=== PATIENT | female | born 1995 | race Hispanic/Latino ===

== ENCOUNTER 2017-10-29 15:11 | Observation (INO) | payer MEDICAID ==
[~2017-10-29] VITALS: Ht 152.4 cm; Wt 77.1 kg
[~2017-10-29 15:11] MED LIST: PNV91TAB3 PO; SULF1TAB42 PO; TYL3 PO
[2017-10-29] MEDS ORDERED: LACTATED RINGERS 1000ML 1,000 ML IV SCH (15:45)
[2017-10-29 16:00] LABS: BASOPHILS % (AUTO) 0.4 % (0.0-5.0); EOSINOPHILS % (AUTO) 1.3 % (0.0-8.0); LYMPHOCYTES % (AUTO) 17.4 % (21.0-51.0); MEAN CORPUSCULAR HEMOGLOBIN 29.2 pg (27.0-33.0); MEAN CORPUSCULAR HGB CONC 35.2 g/dL (32.0-36.0); MEAN CORPUSCULAR VOLUME 82.8 fL (79-99); MONOCYTES % (AUTO) 7.6 % (3.0-13.0); NEUTROPHILS % (AUTO) 73.3 % (40.0-77.0); NUCLEATED RED BLOOD CELLS 0.1 % (0.0-0.19); PLATELET COUNT (AUTO) 225 K/uL (130-400); RED BLOOD CELL COUNT(AUTO) 3.99 MIL/uL (4.00-5.50); RED CELL DISTRIBUTION WIDTH 15.7 % (11.0-15.5); WHITE BLOOD COUNT (AUTO) 10.8 K/uL (4.8-10.8)
[2017-10-29 16:01] LABS: APPEARANCE,URINE Clear (CLEAR); BILIRUBIN,URINE Negative (NEGATIVE); COLOR,URINE Yellow (YELLOW); GLUCOSE, URINE (UA) Negative (NEGATIVE); KETONES,URINE Negative (NEGATIVE); LEUKOCYTE ESTERASE ,URINE Moderate (NEGATIVE); NITRATE,URINE Negative (NEGATIVE); OCCULT BLOOD,URINE Negative (NEGATIVE); PH,URINE 6.5 (5.0-8.0); PROTEIN,URINE Negative (NEGATIVE)
[2017-10-29 16:21] LABS: BACTERIA,URINE Few /HPF (None Seen); RBC,URINE 0-1 /HPF (0-1); SQUAMOUS EPITHELIAL CELL,UR Few /HPF (0-2); TRICHOMONAS,URINE Few /LPF (None Seen)
[2017-10-29] MEDS ORDERED: METRONIDAZOLE 500 MG TABLET PO SCH (17:15)
[2017-10-29] MEDS ORDERED: CEFTRIAXONE SODIUM 1 GM IVP SCH (17:15)
[2017-10-29] MEDS ORDERED: CEFTRIAXONE 1GM/D5W 50ML 50 ML IV ONE (17:15)
== END 2017-10-29 18:58 | disposition home or self-care (01) ==
LOC: LDH 15:11
PROVIDERS: ADMIT Obstetrics & Gynecology; ATTEND Obstetrics & Gynecology
DX: O21.1 Hyperemesis gravidarum with metabolic disturbance (principal); E86.0 Dehydration; Z3A.30 30 weeks gestation of pregnancy
CPT/HCPCS: 36415; 81001; 85025; 96361; 96374; G0378 ×5; J0696; J7120; 96360

== ENCOUNTER 2017-10-30 15:05 | Observation (INO) | payer MEDICAID ==
[2017-10-30 15:36] LABS: APPEARANCE,URINE Cloudy (CLEAR); BILIRUBIN,URINE Negative (NEGATIVE); COLOR,URINE Yellow (YELLOW); GLUCOSE, URINE (UA) Negative (NEGATIVE); KETONES,URINE Negative (NEGATIVE); LEUKOCYTE ESTERASE ,URINE Moderate (NEGATIVE); NITRATE,URINE Negative (NEGATIVE); OCCULT BLOOD,URINE Negative (NEGATIVE); PROTEIN,URINE Negative (NEGATIVE)
[2017-10-30 16:29] LABS: BACTERIA,URINE Many /HPF (None Seen); RBC,URINE None Seen /HPF (0-1); SQUAMOUS EPITHELIAL CELL,UR 30-50 /HPF (0-2)
== END 2017-10-30 16:17 | disposition home or self-care (01) ==
LOC: EDH 15:05 → LDH 15:26
PROVIDERS: ADMIT Obstetrics & Gynecology; ATTEND Obstetrics & Gynecology
DX: O99.89 Other specified diseases and conditions complicating pregnancy, childbirth and the puerperium (principal); M54.5 Low back pain; O21.2 Late vomiting of pregnancy; O26.893 Other specified pregnancy related conditions, third trimester; R06.02 Shortness of breath; Z3A.30 30 weeks gestation of pregnancy
CPT/HCPCS: 99285; G0378

== ENCOUNTER 2017-11-17 18:59 | Observation (INO) | payer MEDICAID ==
[~2017-11-17] VITALS: Ht 152.4 cm; Wt 78.9 kg
[2017-11-17 19:39] VITALS: BP 124/69
[2017-11-17 19:44] LABS: APPEARANCE,URINE Cloudy (CLEAR); BILIRUBIN,URINE Negative (NEGATIVE); COLOR,URINE Yellow (YELLOW); GLUCOSE, URINE (UA) Negative (NEGATIVE); KETONES,URINE Negative (NEGATIVE); LEUKOCYTE ESTERASE ,URINE Moderate (NEGATIVE); NITRATE,URINE Negative (NEGATIVE); OCCULT BLOOD,URINE Negative (NEGATIVE); PH,URINE 6.5 (5.0-8.0); PROTEIN,URINE Negative (NEGATIVE)
[2017-11-17 19:52] LABS: AMPHET/METH SCREEN,URINE NEGATIVE (NEGATIVE); BARBITURATE SCREEN, URINE NEGATIVE (NEGATIVE); BENZODIAZEPINES SCREEN,URINE NEGATIVE (NEGATIVE); CANNABINOID SCREEN,URINE NEGATIVE (NEGATIVE); COCAINE SCREEN,URINE NEGATIVE (NEGATIVE); OPIATE SCREEN,URINE NEGATIVE (NEGATIVE); PHENCYCLIDINE SCREEN,URINE NEGATIVE (NEGATIVE)
[2017-11-17 20:18] LABS: BACTERIA,URINE Moderate /HPF (None Seen); RBC,URINE 0-1 /HPF (0-1); SQUAMOUS EPITHELIAL CELL,UR Moderate /HPF (0-2)
== END 2017-11-17 20:25 | disposition home or self-care (01) ==
LOC: EDH 18:59 → LDH 19:00
PROVIDERS: ADMIT Obstetrics & Gynecology; ATTEND Obstetrics & Gynecology
DX: O42.913 Preterm premature rupture of membranes, unspecified as to length of time between rupture and onset of labor, third trimester (principal); Z3A.32 32 weeks gestation of pregnancy
CPT/HCPCS: 80305; 81001; 82120; 99285; G0378

== ENCOUNTER 2017-12-31 10:30 | Inpatient (IN) | payer MEDICAID ==
[~2017-12-31] VITALS: Ht 152.4 cm; Wt 83.0 kg
[2017-12-31 11:16] LABS: HEMATOCRIT 39.4 % (36-48); MEAN CORPUSCULAR HEMOGLOBIN 28.2 pg (27.0-33.0); MEAN CORPUSCULAR HGB CONC 33.9 g/dL (32.0-36.0); MEAN CORPUSCULAR VOLUME 83.1 fL (79-99); PLATELET COUNT (AUTO) 193 K/uL (130-400); RED BLOOD CELL COUNT(AUTO) 4.74 MIL/uL (4.00-5.50); RED CELL DISTRIBUTION WIDTH 19.3 % (11.0-15.5); WHITE BLOOD COUNT (AUTO) 10.3 K/uL (4.8-10.8)
[2018-01-01] MEDS ORDERED: OXYTOCIN-LR 20 UNITS/1000 ML 1,000 ML IV PRN ×2 (05:07→09:38)
[2018-01-01] MEDS ORDERED: CEFAZOLIN SODIUM 1 GM VIAL IVP PRN (05:15)
[2018-01-01] MEDS ORDERED: SODIUM CHLORIDE 0.9% 10 ML VIAL IVP PRN ×2 (05:15→09:45)
[2018-01-01] MEDS ORDERED: MEPERIDINE-PF 75 MG/ML SYG IM PRN (05:15)
[2018-01-01] MEDS ORDERED: CITRIC ACID/SODIUM CITRATE 30 ML UDCUP PO PRN (05:15)
[2018-01-01] MEDS ORDERED: LACTATED RINGERS 1000ML 1,000 ML IV SCH (05:15)
[2018-01-01] MEDS ORDERED: PROMETHAZINE HCL 25 MG/ML 1ML AMPULE IM PRN ×2 (05:15→10:00)
[2018-01-01] MEDS ORDERED: PREN-196 PO (05:45)
[2018-01-01] MEDS ORDERED: FERR-82 PO (05:45)
[2018-01-01 05:46] VITALS: BP 121/65
[2018-01-01] MEDS ORDERED: METHYLERGONOVINE MALEATE 0.2 MG/1 ML ML ONE (06:03)
[2018-01-01] MEDS ORDERED: SENSORCAINE/DEXT/PF 0.75% 2ML AMP IJ ONE (06:34)
[2018-01-01] MEDS ORDERED: MIDAZOLAM HCL 1 MG/ML 2ML VIAL ONE (06:56)
[2018-01-01] MEDS ORDERED: ONDANSETRON HCL 4 MG/2 ML VIAL ONE (06:57)
[2018-01-01] MEDS ORDERED: DEXAMETHASONE SOD PHOSPHATE 10MG/ML 1ML VIAL ONE (06:57)
[2018-01-01] MEDS ORDERED: OXYTOCIN 10 USP UNITS/ML ONE (07:24)
[2018-01-01] MEDS ORDERED: LACTATED RINGERS 1000ML 1,000 ML IV ONE (07:24)
[2018-01-01 07:36] LABS: HEPATITIS Bs ANTIGEN SCREEN P Negative (Negative)
[2018-01-01] MEDS ORDERED: MEPERIDINE-PF 25 MG/ML SYG ONE (08:49)
[2018-01-01] MEDS ORDERED: DEXTROSE 5 %-0.45 % NACL 1,000 ML IV PRN (09:45)
[2018-01-01] MEDS ORDERED: DiphenhydrAMINE HCL 50 MG/ML VIAL IVP PRN (10:00)
[2018-01-01] MEDS ORDERED: ONDANSETRON HCL 4 MG/2 ML VIAL IVP PRN ×2 (10:00)
[2018-01-01] MEDS ORDERED: HYDROCODONE/ACETAMINOPHEN 5/325 MG TAB PO PRN (10:00)
[2018-01-01] MEDS ORDERED: EPHEDRINE SULFATE 50 MG/ML AMPULE IVP PRN (10:00)
[2018-01-01] MEDS ORDERED: ONDANSETRON HCL 4 MG/2 ML 8 MG in SODIUM CHLORIDE 0.9% 50 ML IVP NR (10:00)
[2018-01-01] MEDS ORDERED: MORPHINE SULFATE 2 MG/ML 1ML SYG IVP PRN (10:00)
[2018-01-01] MEDS ORDERED: METOCLOPRAMIDE 10 MG/2 ML VIAL IVP PRN (10:00)
[2018-01-01] MEDS ORDERED: NALOXONE HCL 0.4 MG/1 ML ML IVP PRN (10:00)
[2018-01-01] MEDS: CALDOLOR 800MG+NS 250ML 250 ML IV SCH ×2 (11:42→19:04)
[2018-01-01 12:00] VITALS: BP 131/79
[2018-01-01 15:21] VITALS: BP 136/78
[2018-01-01] MEDS: HYDROCODONE/ACETAMINOPHEN 5/325 MG TAB PO PRN (17:46)
[2018-01-01] MEDS: DEXTROSE 5 %-0.45 % NACL 1,000 ML IV PRN ×2 (17:46→18:17)
[2018-01-01 19:39] VITALS: BP 126/71
[2018-01-02] VITALS (7 sets, daily range): BP systolic 94–132; BP diastolic 58–77
[2018-01-02] MEDS: DEXTROSE 5 %-0.45 % NACL 1,000 ML IV PRN (02:00)
[2018-01-02] MEDS: HYDROCODONE/ACETAMINOPHEN 5/325 MG TAB PO PRN (03:09)
[2018-01-02] MEDS ORDERED: LANOLIN 30GM OINTMENT TP PRN (05:00)
[2018-01-02] MEDS ORDERED: HYDROCODONE/ACETAMINOPHEN 5/325 MG TAB PO PRN (05:00)
[2018-01-02] MEDS ORDERED: DIPH,PERTUSS(ACELL),TET VAC/PF 0.5 ML VIAL IM SCH (05:00)
[2018-01-02] MEDS ORDERED: ACETAMINOPHEN EXTRA STRENGTH 500 MG TABLET PO PRN (05:00)
[2018-01-02 05:29] LABS: HEMATOCRIT 31.7 % (36-48); MEAN CORPUSCULAR HEMOGLOBIN 27.9 pg (27.0-33.0); MEAN CORPUSCULAR HGB CONC 33.6 g/dL (32.0-36.0); PLATELET COUNT (AUTO) 172 K/uL (130-400); RED BLOOD CELL COUNT(AUTO) 3.82 MIL/uL (4.00-5.50); RED CELL DISTRIBUTION WIDTH 19.6 % (11.0-15.5); WHITE BLOOD COUNT (AUTO) 11.6 K/uL (4.8-10.8)
[2018-01-02] MEDS ORDERED: ONDANSETRON HCL MDV 20ML 2 MG/ML VIAL IVP PRN (05:30)
[2018-01-02] MEDS ORDERED: ONDANSETRON HCL 4 MG/2 ML VIAL IVP PRN (05:30)
[2018-01-02] MEDS: DOCUSATE SODIUM 100 MG CAP PO SCH ×2 (08:54→21:16)
[2018-01-02] MEDS: SIMETHICONE 80 MG TAB.CHEW PO PRN ×2 (08:54→21:16)
[2018-01-02] MEDS: ACETAMINOPHEN-CODEINE 300/30MG TAB PO PRN ×2 (08:55→18:34)
[2018-01-02] MEDS: BISACODYL 10 MG SUPP.RECT RC PRN ×2 (15:30→21:17)
[2018-01-02] MEDS: IBUPROFEN 600 MG TABLET PO PRN ×2 (15:30→21:17)
[2018-01-03] MEDS: IBUPROFEN 600 MG TABLET PO PRN ×2 (04:20→13:51)
[2018-01-03 07:43] VITALS: BP 135/79
[2018-01-03] MEDS: DOCUSATE SODIUM 100 MG CAP PO SCH (08:37)
[2018-01-03] MEDS: SIMETHICONE 80 MG TAB.CHEW PO PRN (08:37)
[2018-01-03] MEDS: ACETAMINOPHEN-CODEINE 300/30MG TAB PO PRN (09:13)
[2018-01-03] MEDS ORDERED: LACTATED RINGERS 1000ML IV ONE (09:30)
[2018-01-03 11:39] VITALS: BP 128/81
[2018-01-03 15:39] VITALS: BP 118/69
== END 2018-01-03 19:10 | disposition home or self-care (01) | DRG 540 ==
LOC: EDSTATUS 10:30 → LDH 01-01 04:40 → WSH 01-01 09:00
PROVIDERS: ADMIT Obstetrics & Gynecology; ATTEND Obstetrics & Gynecology
PROC: 10D00Z1 Extraction of Products of Conception, Low, Open Approach (ICD-10-PCS; principal; 2018-01-01 07:00)
PROC: 3E0234Z Introduction of Serum, Toxoid and Vaccine into Muscle, Percutaneous Approach (ICD-10-PCS; 2018-01-02)
DX: O34.211 Maternal care for low transverse scar from previous cesarean delivery (principal); J45.909 Unspecified asthma, uncomplicated; O99.52 Diseases of the respiratory system complicating childbirth; Z37.0 Single live birth; Z23 Encounter for immunization; Z3A.39 39 weeks gestation of pregnancy
CPT/HCPCS: 36415; 59510; 85027; 86592; 86850; 86900; 86901; 87340; 90715; A4344; A4450; A4606; J0690; J1100; J1741; J2175; J2210; J2250; J2405; J2550; J2590; J3490; J7120

== ENCOUNTER 2018-01-04 15:56 | Emergency (ER) | payer MEDICAID ==
[~2018-01-04 15:56] MED LIST changes: +FERR-82 PO; +PREN-196 PO
[2018-01-04] MEDS ORDERED: ACETAMINOPHEN EXTRA STRENGTH 500 MG TABLET ONE (16:40)
[2018-01-04] MEDS ORDERED: ORPHENADRINE CITRATE 30 MG/ML ML ONE (16:40)
[2018-01-04 17:05] LABS: BASOPHILS % (AUTO) 0.3 % (0.0-5.0); EOSINOPHILS % (AUTO) 3.3 % (0.0-8.0); HEMATOCRIT 33.4 % (36-48); LYMPHOCYTES % (AUTO) 24.7 % (21.0-51.0); MEAN CORPUSCULAR HEMOGLOBIN 28.1 pg (27.0-33.0); MEAN CORPUSCULAR HGB CONC 33.6 g/dL (32.0-36.0); MEAN CORPUSCULAR VOLUME 83.8 fL (79-99); MONOCYTES % (AUTO) 7.4 % (3.0-13.0); NEUTROPHILS % (AUTO) 64.3 % (40.0-77.0); PLATELET COUNT (AUTO) 194 K/uL (130-400); RED BLOOD CELL COUNT(AUTO) 3.99 MIL/uL (4.00-5.50); RED CELL DISTRIBUTION WIDTH 19.4 % (11.0-15.5); WHITE BLOOD COUNT (AUTO) 7.6 K/uL (4.8-10.8)
[2018-01-04 17:13] LABS: CREATININE 0.6 mg/dL (0.5-1.5)
[2018-01-04 17:17] LABS: ALBUMIN 2.5 g/dL (3.5-5.0); BILIRUBIN,TOTAL 0.2 mg/dL (0.2-1.0); TOTAL PROTEIN, SERUM 6.4 g/dL (6.0-8.3)
== END 2018-01-04 18:31 | disposition home or self-care (01) ==
LOC: EDH 15:56
DX: G44.209 Tension-type headache, unspecified, not intractable (principal); M54.2 Cervicalgia; J45.909 Unspecified asthma, uncomplicated; Z90.49 Acquired absence of other specified parts of digestive tract; Z98.890 Other specified postprocedural states
CPT/HCPCS: 36415; 80053; 85025; 96372; 99284; J2360

== ENCOUNTER 2018-12-29 15:47 | Emergency (ER) | payer MEDICAID, OTHER ==
[2018-12-29] MEDS ORDERED: ONDANSETRON ODT 4 MG TAB ONE (16:25)
[2018-12-29] MEDS ORDERED: SIMETHICONE 80 MG TAB.CHEW ONE (16:25)
[2018-12-29] MEDS ORDERED: ACETAMINOPHEN 325 MG TAB ONE (16:25)
== END 2018-12-29 18:02 | disposition home or self-care (01) ==
LOC: EDH 15:47
DX: R11.2 Nausea with vomiting, unspecified (principal); R19.7 Diarrhea, unspecified; J45.909 Unspecified asthma, uncomplicated

== ENCOUNTER 2019-03-14 21:11 | Emergency (ER) | payer OTHER | END 2019-03-14 21:51 | disposition home or self-care (01) | LOC: EDH 21:11 | DX: S09.8XXA Other specified injuries of head, initial encounter (principal); J45.909 Unspecified asthma, uncomplicated; Z90.49 Acquired absence of other specified parts of digestive tract; V49.19XA Passenger injured in collision with other motor vehicles in nontraffic accident, initial encounter; Y93.89 Activity, other specified; Y92.89 Other specified places as the place of occurrence of the external cause; Y99.8 Other external cause status ==

== ENCOUNTER 2019-04-27 15:13 | Emergency (ER) | payer OTHER ==
[2019-04-27 15:55] LABS: BASOPHILS % (AUTO) 0.6 % (0.0-5.0); EOSINOPHILS % (AUTO) 1.3 % (0.0-8.0); HEMATOCRIT 43.1 % (36-48); LYMPHOCYTES % (AUTO) 25.7 % (21.0-51.0); MEAN CORPUSCULAR HEMOGLOBIN 29.9 pg (27.0-33.0); MEAN CORPUSCULAR HGB CONC 34.4 g/dL (32.0-36.0); MEAN CORPUSCULAR VOLUME 86.8 fL (79-99); MONOCYTES % (AUTO) 8.2 % (3.0-13.0); NEUTROPHILS % (AUTO) 64.2 % (40.0-77.0); PLATELET COUNT (AUTO) 250 K/uL (130-400); RED BLOOD CELL COUNT(AUTO) 4.96 MIL/uL (4.00-5.50); RED CELL DISTRIBUTION WIDTH 12.9 % (11.0-15.5); WHITE BLOOD COUNT (AUTO) 8.6 K/uL (4.8-10.8)
[2019-04-27 16:11] LABS: CREATININE 0.5 mg/dL (0.5-1.5); POTASSIUM 4.1 mmol/L (3.5-5.1)
[2019-04-27 16:16] LABS: ALBUMIN 4.3 g/dL (3.5-5.0); BILIRUBIN,TOTAL 0.4 mg/dL (0.2-1.0); TOTAL PROTEIN, SERUM 8.3 g/dL (6.0-8.3)
[2019-04-27 16:26] LABS: APPEARANCE,URINE Cloudy (CLEAR); BILIRUBIN,URINE Negative (NEGATIVE); COLOR,URINE Yellow (YELLOW); GLUCOSE, URINE (UA) Negative (NEGATIVE); KETONES,URINE Negative (NEGATIVE); LEUKOCYTE ESTERASE ,URINE Moderate (NEGATIVE); NITRATE,URINE Negative (NEGATIVE); OCCULT BLOOD,URINE Negative (NEGATIVE); PROTEIN,URINE Negative (NEGATIVE)
[2019-04-27 16:43] LABS: HCG,QUAL RESULT NEGATIVE (NEGATIVE)
[2019-04-27 16:51] LABS: BACTERIA,URINE Few /HPF (None Seen); RBC,URINE None Seen /HPF (0-1)
== END 2019-04-27 16:52 | disposition home or self-care (01) ==
LOC: EDH 15:13
DX: R53.1 Weakness (principal); F41.1 Generalized anxiety disorder; G44.219 Episodic tension-type headache, not intractable; G47.00 Insomnia, unspecified; J45.909 Unspecified asthma, uncomplicated
CPT/HCPCS: 36415; 80053; 81001; 81025; 85025; 93005

== ENCOUNTER 2019-10-08 18:22 | Emergency (ER) | payer SELFPAY | END 2019-10-08 18:45 | disposition home or self-care (01) | LOC: EDH 18:22 | DX: J11.1 Influenza due to unidentified influenza virus with other respiratory manifestations (principal); J45.909 Unspecified asthma, uncomplicated ==

== ENCOUNTER 2019-12-11 17:19 | Emergency (ER) | payer OTHER ==
[2019-12-11 18:21] LABS: BASOPHILS % (AUTO) 0.6 % (0.0-5.0); EOSINOPHILS % (AUTO) 2.6 % (0.0-8.0); HEMATOCRIT 39.8 % (36-48); LYMPHOCYTES % (AUTO) 26.7 % (21.0-51.0); MEAN CORPUSCULAR HGB CONC 33.7 g/dL (32.0-36.0); MEAN CORPUSCULAR VOLUME 86.1 fL (79-99); MONOCYTES % (AUTO) 7.2 % (3.0-13.0); PLATELET COUNT (AUTO) 287 K/uL (130-400); RED BLOOD CELL COUNT(AUTO) 4.62 MIL/uL (4.00-5.50); RED CELL DISTRIBUTION WIDTH 11.9 % (11.0-15.5); WHITE BLOOD COUNT (AUTO) 8.9 K/uL (4.8-10.8)
[2019-12-11 18:30] LABS: CREATININE 0.5 mg/dL (0.5-1.5); POTASSIUM 4.1 mmol/L (3.5-5.1)
[2019-12-11 18:35] LABS: ALBUMIN 4.1 g/dL (3.5-5.0); BILIRUBIN,TOTAL 0.2 mg/dL (0.2-1.0); TOTAL PROTEIN, SERUM 8.2 g/dL (6.0-8.3)
[2019-12-11 18:39] LABS: RAPID GROUP A STREP NEGATIVE (NEGATIVE)
== END 2019-12-11 20:27 | disposition home or self-care (01) ==
LOC: EDH 17:19
DX: J02.9 Acute pharyngitis, unspecified (principal); R04.2 Hemoptysis; J45.909 Unspecified asthma, uncomplicated; Z90.49 Acquired absence of other specified parts of digestive tract; Z98.890 Other specified postprocedural states
CPT/HCPCS: 36415; 71045; 80053; 85025; 87804; 87880

== ENCOUNTER 2020-06-24 15:28 | Emergency (ER) | payer MEDICAID ==
[2020-06-24 16:04] LABS: APPEARANCE,URINE Clear (CLEAR); BILIRUBIN,URINE Negative (NEGATIVE); COLOR,URINE Yellow (YELLOW); GLUCOSE, URINE (UA) Negative (NEGATIVE); KETONES,URINE 40 mg/dL (NEGATIVE); LEUKOCYTE ESTERASE ,URINE Small (NEGATIVE); NITRATE,URINE Negative (NEGATIVE); OCCULT BLOOD,URINE Negative (NEGATIVE); PH,URINE 6.5 (5.0-8.0); PROTEIN,URINE Negative (NEGATIVE)
[2020-06-24 16:11] LABS: AMPHET/METH SCREEN,URINE NEGATIVE (NEGATIVE); BARBITURATE SCREEN, URINE NEGATIVE (NEGATIVE); BENZODIAZEPINES SCREEN,URINE NEGATIVE (NEGATIVE); CANNABINOID SCREEN,URINE NEGATIVE (NEGATIVE); COCAINE SCREEN,URINE NEGATIVE (NEGATIVE); OPIATE SCREEN,URINE NEGATIVE (NEGATIVE); PHENCYCLIDINE SCREEN,URINE NEGATIVE (NEGATIVE)
[2020-06-24 16:13] LABS: BASOPHILS % (AUTO) 0.4 % (0.0-5.0); EOSINOPHILS % (AUTO) 1.2 % (0.0-8.0); LYMPHOCYTES % (AUTO) 18.3 % (21.0-51.0); MEAN CORPUSCULAR HEMOGLOBIN 30.1 pg (27.0-33.0); MEAN CORPUSCULAR HGB CONC 35.4 g/dL (32.0-36.0); MEAN CORPUSCULAR VOLUME 85.2 fL (79-99); MONOCYTES % (AUTO) 4.6 % (3.0-13.0); NEUTROPHILS % (AUTO) 74.5 % (40.0-77.0); PLATELET COUNT (AUTO) 248 K/uL (130-400); RED BLOOD CELL COUNT(AUTO) 4.58 MIL/uL (4.00-5.50); RED CELL DISTRIBUTION WIDTH 12.1 % (11.0-15.5); WHITE BLOOD COUNT (AUTO) 11.3 K/uL (4.8-10.8)
[2020-06-24 16:19] LABS: CREATININE 0.5 mg/dL (0.5-1.5); POTASSIUM 3.3 mmol/L (3.5-5.1)
[2020-06-24 16:25] LABS: BACTERIA,URINE Few /HPF (None Seen); RBC,URINE None Seen /HPF (0-1); WBC,URINE 0-1 /HPF (0-1)
[2020-06-24 16:45] LABS: ALBUMIN 3.5 g/dL (3.5-5.0); BILIRUBIN,TOTAL 0.4 mg/dL (0.2-1.0); TOTAL PROTEIN, SERUM 8.2 g/dL (6.0-8.3)
== END 2020-06-24 20:17 | disposition left against medical advice (07) ==
LOC: EDH 15:28
DX: O9A.211 Injury, poisoning and certain other consequences of external causes complicating pregnancy, first trimester (principal); O99.511 Diseases of the respiratory system complicating pregnancy, first trimester; O26.891 Other specified pregnancy related conditions, first trimester; S80.12XA Contusion of left lower leg, initial encounter; R55 Syncope and collapse; Z20.828 Contact with and (suspected) exposure to other viral communicable diseases; J45.909 Unspecified asthma, uncomplicated; Z90.49 Acquired absence of other specified parts of digestive tract; Z98.890 Other specified postprocedural states; Z88.6 Allergy status to analgesic agent; Z3A.13 13 weeks gestation of pregnancy; W18.39XA Other fall on same level, initial encounter; Y93.89 Activity, other specified; Y92.89 Other specified places as the place of occurrence of the external cause; Y99.8 Other external cause status
CPT/HCPCS: 36415; 76801; 80053; 80305; 81001; 84702; 85025; 87426; 93005; 99285; U0003

== ENCOUNTER 2020-07-19 15:32 | Emergency (ER) | payer MEDICAID ==
[2020-07-19 17:32] LABS: BASOPHILS % (AUTO) 0.5 % (0.0-5.0); EOSINOPHILS % (AUTO) 1.4 % (0.0-8.0); HEMATOCRIT 35.4 % (36-48); LYMPHOCYTES % (AUTO) 23.5 % (21.0-51.0); MEAN CORPUSCULAR HGB CONC 34.2 g/dL (32.0-36.0); MEAN CORPUSCULAR VOLUME 87.6 fL (79-99); MONOCYTES % (AUTO) 6.8 % (3.0-13.0); NEUTROPHILS % (AUTO) 66.2 % (40.0-77.0); PLATELET COUNT (AUTO) 245 K/uL (130-400); RED BLOOD CELL COUNT(AUTO) 4.04 MIL/uL (4.00-5.50); RED CELL DISTRIBUTION WIDTH 12.9 % (11.0-15.5); WHITE BLOOD COUNT (AUTO) 8.6 K/uL (4.8-10.8)
[2020-07-19 17:32] LABS: APPEARANCE,URINE Cloudy (CLEAR); BILIRUBIN,URINE Negative (NEGATIVE); COLOR,URINE Yellow (YELLOW); GLUCOSE, URINE (UA) Negative (NEGATIVE); KETONES,URINE Negative (NEGATIVE); LEUKOCYTE ESTERASE ,URINE Moderate (NEGATIVE); NITRATE,URINE Negative (NEGATIVE); OCCULT BLOOD,URINE Negative (NEGATIVE); PROTEIN,URINE Negative (NEGATIVE)
[2020-07-19 17:46] LABS: CREATININE 0.5 mg/dL (0.5-1.5); POTASSIUM 3.7 mmol/L (3.5-5.1)
[2020-07-19 17:51] LABS: ALBUMIN 3.2 g/dL (3.5-5.0); BILIRUBIN,TOTAL 0.2 mg/dL (0.2-1.0); TOTAL PROTEIN, SERUM 7.6 g/dL (6.0-8.3)
[2020-07-19 17:53] LABS: RBC,URINE 0-1 /HPF (0-1)
[2020-07-19 17:54] LABS: BACTERIA,URINE Few /HPF (None Seen); MUCUS,URINE Few LPF (None Seen); SQUAMOUS EPITHELIAL CELL,UR Moderate /HPF (0-2)
== END 2020-07-19 19:43 | disposition left against medical advice (07) ==
LOC: EDH 15:32
DX: O26.892 Other specified pregnancy related conditions, second trimester (principal); O99.512 Diseases of the respiratory system complicating pregnancy, second trimester; J45.909 Unspecified asthma, uncomplicated; Z88.6 Allergy status to analgesic agent; Z90.710 Acquired absence of both cervix and uterus; Z3A.19 19 weeks gestation of pregnancy; Z53.21 Procedure and treatment not carried out due to patient leaving prior to being seen by health care provider
CPT/HCPCS: 36415; 80053; 81001; 83690; 85025; 87088

== ENCOUNTER 2020-08-10 10:29 | Emergency (ER) | payer MEDICAID ==
[2020-12-23] MEDS ORDERED: ALBU0.63 IH (15:18)
== END 2020-08-10 13:39 | disposition home or self-care (01) ==
LOC: EDH 10:29
DX: O99.342 Other mental disorders complicating pregnancy, second trimester (principal); F41.9 Anxiety disorder, unspecified; O99.512 Diseases of the respiratory system complicating pregnancy, second trimester; R06.02 Shortness of breath; J45.909 Unspecified asthma, uncomplicated; Z88.6 Allergy status to analgesic agent; Z3A.23 23 weeks gestation of pregnancy
CPT/HCPCS: 71045

== ENCOUNTER 2020-10-27 14:24 | Observation (INO) | payer MEDICAID | END 2020-10-27 15:15 | disposition home or self-care (01) | LOC: EDH 14:24 → LDH 14:25 | PROVIDERS: ADMIT Specialist; ATTEND Specialist | DX: O36.8130 Decreased fetal movements, third trimester, not applicable or unspecified (principal); O99.513 Diseases of the respiratory system complicating pregnancy, third trimester; J45.909 Unspecified asthma, uncomplicated; O99.013 Anemia complicating pregnancy, third trimester; D64.9 Anemia, unspecified; O34.219 Maternal care for unspecified type scar from previous cesarean delivery; Z90.49 Acquired absence of other specified parts of digestive tract; Z3A.32 32 weeks gestation of pregnancy | CPT/HCPCS: 59025; 76819; 99284; G0378 ==

== ENCOUNTER 2023-02-07 18:15 | Observation (INO) | payer MEDICAID ==
[~2023-02-07] VITALS: Ht 152.4 cm; Wt 68.9 kg
[~2023-02-07 18:15] MED LIST changes: +ALBU0.63 IH; -FERR-82 PO; -PNV91TAB3 PO; -SULF1TAB42 PO; -TYL3 PO
[2023-02-07 18:22] VITALS: BP 138/84; PULSE 94; RESP 16; O2SAT 99
[2023-02-07] MEDS ORDERED: ACETAMINOPHEN WITH CODEINE 1 TAB TAB PO PRN (19:00)
[2023-02-07] MEDS ORDERED: LACTATED RINGERS 1000ML 1,000 ML IV SCH (19:00)
[2023-02-07 19:25] LABS: APPEARANCE,URINE CLOUDY (CLEAR); BILIRUBIN,URINE NEGATIVE (NEGATIVE); COLOR,URINE LIGHT-YELLOW (YELLOW); GLUCOSE, URINE (UA) NEGATIVE (NEGATIVE); KETONES,URINE NEGATIVE (NEGATIVE); LEUKOCYTE ESTERASE ,URINE 25 Leu/uL (NEGATIVE); NITRATE,URINE NEGATIVE (NEGATIVE); OCCULT BLOOD,URINE NEGATIVE (NEGATIVE); PROTEIN,URINE NEGATIVE (NEGATIVE); UROBILINOGEN,URINE 0.2 mg/dL (0.2-1.0)
[2023-02-07 19:38] LABS: BACTERIA,URINE MOD /HPF (None Seen); MUCUS,URINE FEW LPF (None Seen); SQUAMOUS EPITHELIAL CELL,UR MANY /HPF (0-2)
== END 2023-02-07 19:13 | disposition left against medical advice (07) ==
LOC: EDH 18:15 → LDH 18:36
PROVIDERS: ADMIT Obstetrics & Gynecology; ATTEND Obstetrics & Gynecology
DX: O26.892 Other specified pregnancy related conditions, second trimester (principal); R51.9 Headache, unspecified; O99.891 Other specified diseases and conditions complicating pregnancy; M54.9 Dorsalgia, unspecified; Z3A.20 20 weeks gestation of pregnancy
CPT/HCPCS: 99284; 96374; 87635; 96375; 87077; 87088; 87186; 87804 ×2; 81001 ×2; 93005; 96372; G0378; G0379; C9803; J1200; J2270; J2765

== ENCOUNTER 2023-06-28 09:52 | Emergency (ER) | payer MEDICAID ==
[~2023-06-28] VITALS: Ht 152.4 cm; Wt 69.9 kg
[~2023-06-28 09:52] MED LIST changes: +ACET-2079 PO
[2023-06-28 09:53] VITALS: BP 130/80; PULSE 91; RESP 16
[2023-06-28] MEDS ORDERED: CEPH500B PO (10:15)
== END 2023-06-28 10:25 | disposition home or self-care (01) ==
LOC: EDH 09:52
DX: Z48.00 Encounter for change or removal of nonsurgical wound dressing (principal); J45.909 Unspecified asthma, uncomplicated; Z90.49 Acquired absence of other specified parts of digestive tract; Z79.899 Other long term (current) drug therapy; Z98.890 Other specified postprocedural states; Z88.6 Allergy status to analgesic agent

== ENCOUNTER → 2024-03-11 | Outpatient (CLI) | payer MEDICAID ==
[~2024-03-11] MED LIST changes: -ACET-2079 PO; +ACET-2247 PO; -ALBU0.63 IH; +ALBU18HF7 IH; +LIDOCAINE HCL 4% LTA SOL 4 ML VIAL TP ONE; -PREN-196 PO
== END | disposition home or self-care (01) ==
LOC: WHH 08:29
PROVIDERS: ATTEND Family Medicine
DX: T81.31XA Disruption of external operation (surgical) wound, not elsewhere classified, initial encounter (principal); S31.104A Unspecified open wound of abdominal wall, left lower quadrant without penetration into peritoneal cavity, initial encounter; J45.909 Unspecified asthma, uncomplicated; F41.9 Anxiety disorder, unspecified; F32.A Depression, unspecified; Z90.49 Acquired absence of other specified parts of digestive tract; X58.XXXA Exposure to other specified factors, initial encounter; Y83.8 Other surgical procedures as the cause of abnormal reaction of the patient, or of later complication, without mention of misadventure at the time of the procedure; Y92.89 Other specified places as the place of occurrence of the external cause; Y93.89 Activity, other specified; Y99.8 Other external cause status
CPT/HCPCS: 99215; A4450

== ENCOUNTER 2024-05-05 08:24 | Emergency (ER) | payer MEDICAID ==
[~2024-05-05] VITALS: Ht 152.4 cm; Wt 64.9 kg
[~2024-05-05 08:24] MED LIST changes: +AMOX1TAB16 PO; +HYDR28.32 TP; -LIDOCAINE HCL 4% LTA SOL 4 ML VIAL TP ONE; +MUPI15CR12 TP
[2024-05-05] MEDS: acetaMINOPHEN/coDEINE 120/12MG 5ML PO ONE (08:48)
[2024-05-05 09:05] LABS: SARS-CoV-2, RNA, NAAT NEGATIVE SARS CoV-2 (NEGATIVE)
[2024-05-05 09:06] LABS: APPEARANCE,URINE CLEAR (CLEAR); BILIRUBIN,URINE NEGATIVE (NEGATIVE); COLOR,URINE YELLOW (YELLOW); GLUCOSE, URINE (UA) NEGATIVE (NEGATIVE); KETONES,URINE 20 mg/dL (NEGATIVE); LEUKOCYTE ESTERASE ,URINE NEGATIVE Leu/uL (NEGATIVE); NITRATE,URINE NEGATIVE (NEGATIVE); OCCULT BLOOD,URINE SMALL (NEGATIVE); PROTEIN,URINE 10 mg/dL (NEGATIVE)
[2024-05-05 09:06] LABS: RAPID GROUP A STREP positive (NEGATIVE)
[2024-05-05 09:08] LABS: ADD UA MICROSCOPIC YES
[2024-05-05 09:11] LABS: BACTERIA,URINE RARE /HPF (None Seen); MUCUS,URINE RARE LPF (None Seen); SQUAMOUS EPITHELIAL CELL,UR FEW /HPF (0-2)
[2024-05-05 09:12] LABS: INFLUENZA TYPE A Negative For Type A (NEGATIVE); INFLUENZA TYPE B Negative For Type B (NEGATIVE)
[2024-05-05 09:21] LABS: HEMATOCRIT 38.3 % (36-48); MEAN CORPUSCULAR HEMOGLOBIN 26.7 pg (27.0-33.0); MEAN CORPUSCULAR HGB CONC 32.4 g/dL (32.0-36.0); MEAN CORPUSCULAR VOLUME 82.5 fL (79-99); RED BLOOD CELL COUNT(AUTO) 4.64 MIL/uL (4.00-5.50); RED CELL DISTRIBUTION WIDTH 13.8 % (11.0-15.5); WHITE BLOOD COUNT (AUTO) 10.8 K/uL (4.8-10.8)
[2024-05-05] MEDS: cefTRIAXone 1G VIAL IM ONE (09:25)
[2024-05-05 09:33] LABS: CREATININE 0.8 mg/dL (0.5-1.0); POTASSIUM 3.2 mmol/L (3.5-5.1)
[2024-05-05 09:44] VITALS: BP 121/79; PULSE 107; RESP 18; TEMP 100.9; O2SAT 99
[2024-05-05] MEDS ORDERED: LORA10TA7 PO (09:58)
[2024-05-05] MEDS ORDERED: AMOX1TAB16 PO (09:58)
[2024-05-05] MEDS ORDERED: FLUT16H NS (09:58)
== END 2024-05-05 10:03 | disposition home or self-care (01) ==
LOC: EDH 08:24
DX: J02.0 Streptococcal pharyngitis (principal); Z20.822 Contact with and (suspected) exposure to COVID-19; Z88.6 Allergy status to analgesic agent; Z90.49 Acquired absence of other specified parts of digestive tract; Z79.899 Other long term (current) drug therapy; Z98.890 Other specified postprocedural states
CPT/HCPCS: 99283; 87635; 80048; 85027; 87880; 87804 ×2; 83605; 81001; 36415; 96372; J0696

== ENCOUNTER 2024-05-24 03:11 | Emergency (ER) | payer MEDICAID ==
[~2024-05-24] VITALS: Ht 152.4 cm; Wt 67.1 kg
[~2024-05-24 03:11] MED LIST changes: +FLUT16H NS; +LORA10TA7 PO
[2024-05-24 03:12] VITALS: TEMP 97.1
--- NOTE | 2024-05-24 03:12 | NUR ---
UA CUP PROVIDED
--- NOTE | 2024-05-24 03:18 | ERN ---
General Chief Complaint: Abdominal Pain Stated Complaint: EPIGASTRIC PAIN, DIARRHEA Time Seen by MD: 03:13 History of Present Illness Initial Comments 28F presents for 6 days of abdominal cramping & watery diarrhea. Patient reports pain began as L sided lower abd pain. She developed watery diarrhea multiple times per day. Pain is now generalized and crampy. She is nauseas without vomiting, PO tolerant. No fevers. No urinary symptoms. Patient went to PCP and was started on Augmentin 24 hours ago. Medical hx: denies Surgical hx: panniculectomy, cholecystectomy, x 4 Allergies: Coded Allergies: No Known Drug Allergies (Verified Allergy, Unknown, 09/15/14) aspirin (Unverified Allergy, Unknown, HIVES, 12/24/20) Home Meds Active Scripts Loratadine (Loratadine) 10 Mg Tablet, 1 TAB PO DAILY for allergy symptoms for 30 Days, #30 TAB 0 Refills Prov:CHRISTOPHER BANUELOS MD 05/05/24 Fluticasone Propionate (Flonase Nasal [place]) 50 Mcg/Actuation [place], 2 SPRAY NS DAILY, #16 GM 0 Refills Prov:CHRISTOPHER BANUELOS MD 05/05/24 Amoxicillin/Potassium Clav (Amox Tr-K Clv 875-125 mg Tab) 875 Mg-125 Mg Tablet, 1 TAB PO BID for 10 Days, #20 TAB 0 Refills Prov:CHRISTOPHER BANUELOS MD 05/05/24 Amoxicillin/Potassium Clav (Amox Tr-K Clv 875-125 mg Tab) 875 Mg-125 Mg Tablet, 1 EACH PO BID for 7 Days, #14 TAB 0 Refills Prov:MOHIT BUSBY 04/05/24 Hydrocortisone (Hydrocortisone 1% 28.35GM) 1 % Crm, 2 GM TP BID for 7 Days, #2 8.3 G Prov:MOHIT BUSBY 04/05/24 Mupirocin Calcium (Mupirocin) 2 % Cream..g., 1 GM TP BID for 7 Days, #15 GM Prov:MOHIT BUSBY 04/05/24 Acetaminophen (Tylenol) 325 Mg Tablet, 650 MG PO Q6H PRN for PAIN LEVEL 1 TO 3, #30 TAB Prov:PAO BREWSTER 02/27/24 Reported Medications Albuterol Sulfate (Ventolin Hfa) 90 Mcg Hfa.aer.ad, 2 PUFF IH Q4HPRN PRN for SHORTNESS OF BREATH 12/13/23 Past Medical History Past Medical History: No Pertinent History, Asthma, GERD Past Surgical History: Appendectomy, Cholecystectomy, Surgical History Other: 3 C SECTIONS, COSMETIC SURGERY 01/30 Social History Social History: Negative, Lives with family Female( History) : 4 Para: 4 Aborts: 0 ROS Dictation CONSTITUTIONAL: No chills, no fever, no weakness, no diaphoresis, no malaise. HEAD/FACE: No signs of trauma. EENT: No eye pain, no blurred vision, no tearing, no double vision, no ear pain, no ear discharge, no nose pain, no nasal congestion, no throat pain, no throat swelling, no mouth pain. RESPIRATORY: No cough, no orthopnea, no SOB, no stridor, no wheezing. CARDIOVASCULAR: No chest pain, no edema, no palpitations, no syncope. GASTROINTESTINAL/ABDOMINAL: Abdominal pain and diarrhea GENITOURINARY: No abnormal discharge, no dysuria, no frequent urination, no hematuria. No complaints of pain in the genitals. MUSCULOSKELETAL: No back pain, no gout, no joint pain, no joint swelling, no muscle pain, no muscle stiffness, no neck pain. INTEGUMENTARY: No change in color, no change in hair/nails, no dryness, no lesion, no lumps, no rash. NEUROLOGICAL/PSYCH: No anxiety, not depressed, no emotional problem, no headache, no numbness, no pre-existing deficit, no history of seizures, no tremors, no weakness. HEMATOLOGIC/LYMPHATIC: Not anemic, no history of blood clots, no apparent bleeding, no bruising, glands not swollen. All Systems Negative, Except as Noted. Physical Exam Physical Exam Dictation VITAL SIGNS: Reviewed. GENERAL APPEARANCE: Alert, oriented x3, no acute distress, obese. HEAD AND FACE: Non-traumatic. EYES: PERRL, pink conjunctivas, eyelid no trauma, anterior chamber clear. EARS: Pinnas intact and no signs of trauma or erythema. Ear canals clear and no discharge. TMs no erythema. NOSE: No discharge, no bleeding. OROPHARYNX: Mouth normal, teeth no caries, tongue pink. Pharynx clear, no erythema. Tonsils no exudates, no abscesses noted. Mucous membrane moist. NECK: Supple, non-tender, no thyromegaly, no masses, no JVD, no bruits. BREAST: Deferred. CHEST: No tenderness, no crepitus, no paradoxical movement, no retractions. LUNGS: Clear, well-ventilated, symmetric, no rales, no wheezing, no rhonchi, no stridor, good breath sounds bilaterally. HEART: Regular rate, regular rhythm, no murmur, no gallops. VASCULAR: No peripheral edema. ABDOMEN: Soft, positive bowel sounds, nondistended, no guarding, nontender, no rebound, no masses no hepatomegaly, no splenomegaly, no Nguyen's sign, no hernias. RECTAL: Deferred. GENITAL: Deferred. NEUROLOGICAL: Normal speech, gross motor function intact, gross sensory function intact. MUSCULOSKELETAL: Neck nontender, full range of motion, back nontender, full range of motion. EXTREMITIES: Nontender, full range of motion. SKIN: Color pink, dry, no turgor, no rash, no lacerations, no abrasions, no contusions. LYMPHATICS: Deferred. Results Laboratory and Microbiology Lab and Micro Result Laboratory Tests Test 05/24/24 03:19 05/24/24 03:42 Urine Color LIGHT-YELLOW (YELLOW) Urine Appearance SLIGHTLY CLOUDY (CLEAR) Urine pH 5.5 (5.0-8.0) Urine Specific [place] 1.020 (1.001-1.031) Urine Protein NEGATIVE mg/dL (NEGATIVE) Urine Glucose (UA) NEGATIVE mg/dL (NEGATIVE) Urine Ketones NEGATIVE mg/dL (NEGATIVE) Urine Occult Blood NEGATIVE (NEGATIVE) Urine Nitrate NEGATIVE (NEGATIVE) Urine Bilirubin NEGATIVE mg/dL (NEGATIVE) Urine Urobilinogen 0.2 mg/dL (0.2-1.0) Urine Leukocyte Esterase NEGATIVE Lilli/uL Urine RBC 0-1 /HPF (0-1) Urine WBC 0-1 /HPF (0-1) Urine Squamous Epithelial Cells MANY /HPF (0-2) Urine Bacteria None /HPF (None Seen) Urine HCG, Qualitative NEGATIVE (NEGATIVE) White Blood Count 7.5 K/uL (4.8-10.8) Red Blood Count 4.70 MIL/uL (4.00-5.50) Hemoglobin 12.7 g/dL (12.0-16.0) Hematocrit 38.7 % (36-48) Mean Corpuscular Volume 82.3 fL (79-99) Mean Corpuscular Hemoglobin 27.0 pg (27.0-33.0) Mean Corpuscular Hemoglobin Concent 32.8 g/dL (32.0-36.0) Red Cell Distribution Width 13.9 % (11.0-15.5) Platelet Count 252 K/uL (130-400) Mean Platelet Volume 10.6 fL (7.5-10.5) H Immature Granulocyte % (Auto) 0.7 % (0-1) Neutrophils (%) (Auto) 71.7 % (40.0-77.0) Lymphocytes (%) (Auto) 18.0 % (21.0-51.0) L Monocytes (%) (Auto) 6.0 % (3.0-13.0) Eosinophils (%) (Auto) 3.3 % (0.0-8.0) Basophils (%) (Auto) 0.3 % (0.0-5.0) Neutrophils # (Auto) 5.4 K/uL (1.8-7.7) Lymphocytes # (Auto) 1.4 K/uL (1.0-4.8) Monocytes # (Auto) 0.5 K/uL (0.1-1.0) Eosinophils # (Auto) 0.25 K/uL (0.00-0.70) Basophils # (Auto) 0.02 K/uL (0.00-0.20) Absolute Immature Granulocyte (auto 0.05 K/uL (0-1) Nucleated Red Blood Cells 0.0 % (0.0-0.19) Sodium Level 136 mmol/L (136-145) Potassium Level 3.4 mmol/L (3.5-5.1) L Chloride Level 102 mmol/L (101-111) Carbon Dioxide Level 26 mmol/L (21-32) Blood Urea Nitrogen 11 mg/dL (7-18) Creatinine 0.6 mg/dL (0.5-1.0) Glomerular Filtration Rate Calc 124 mL/min (>90) Random Glucose 101 mg/dL (70-105) Total Calcium 8.5 mg/dL (8.5-10.1) Total Bilirubin 0.4 mg/dL (0.2-1.0) Direct Bilirubin 0.1 mg/dL (0.0-0.3) Aspartate Amino Transf (AST/SGOT) 14 U/L (10-37) Alanine Aminotransferase (ALT/SGPT) 18 U/L (12-78) Alkaline Phosphatase 93 U/L (50-136) Total Creatine Kinase 60 U/L (21-232) Total Protein 8.1 g/dL (6.0-8.3) Albumin 3.7 g/dL (3.5-5.0) Lipase 33 U/L (16-77) MDM CC: Abdominal pain Historian: Patient Comorbidities: None Limitations by social determinants of health: None Vital signs stable She was and has some lower abdominal pain. Concern for cystitis versus appendicitis versus IBD versus enteritis versus other. Vital signs are stable Lab work including CBC, BNP, lipase are unremarkable per my interpretation. Urinalysis normal The CT scan shows possible epiploic appendagitis. This also possibly an enteritis. Does raise proximal appendix dilated 8 mm fluid-filled without surrounding mesenteric inflammation, early appendicitis can not be excluded. I re-evaluated the patient she has a completely benign abdomen. She received Toradol and IV fluids. Very low suspicion for appendicitis based on patient's presentation Discussed return precautions with the patient. She is already taking Augmentin, we will recommend that she continues with this. We will discharge her with some pain control including Bentyl Tylenol and recommend that she returns to the emergency department she has not concerns. ED Course Orders Procedure Category Date Status Time Cbc With Differential LAB 05/24/24 Complete 03:13 ,Urine Test LAB 05/24/24 Complete 03:13 Urinalysis Profile LAB 05/24/24 Complete 03:13 0.9%Nacl 1000ml (Ns PHA 05/24/24 Complete 1000ml) 03:30 Ketorolac PHA 05/24/24 Complete Tromethamine 15mg/Ml 03:30 Ondansetron 4mg Inj PHA 05/24/24 Complete (Zofran 4mg Inj) 03:30 Creatine Kinase, Total LAB 05/24/24 Complete 03:13 Lipase LAB 05/24/24 Complete 03:13 Basic Metabolic Panel LAB 05/24/24 Complete 03:13 Hepatic Function Panel LAB 05/24/24 Complete 03:13 Ct Abdomen/Pelvis CT 05/24/24 Taken W/Contrast 03:22 Iohexol (Omnipaque) PHA 05/24/24 Complete 03:53 Current Medications Medications (Trade) Dose Ordered Sig/Hollis Route PRN Reason Start Time Stop Time Status Last Admin Dose Admin Iohexol (Omnipaque) 75 ml STK-MED ONCE IV 05/24/24 03:53 05/24/24 03:58 DC Ketorolac Tromethamine (toRADol) 15 mg ONCE ONCE IV 05/24/24 03:30 05/24/24 03:31 DC 05/24/24 03:55 Ondansetron HCl (zoFRAN 4MG INJ) 4 mg ONCE ONCE IVP 05/24/24 03:30 05/24/24 03:31 DC 05/24/24 03:51 Sodium Chloride 1,000 ml @ 0 mls/hr ONCE ONCE IV 05/24/24 03:30 05/24/24 03:31 DC 05/24/24 03:52 Vital Signs Date Time Temp Pulse Resp B/P (MAP) Pulse Ox O2 Delivery O2 Flow Rate FiO2 05/24/24 03:46 82 16 121/72 99 Room Air* 0 21 05/24/24 03:12 97.2 96 20 125/84 98 Room Air DX & DISP Disposition: Discharge Departure Impression: Primary Impression: Enteritis Condition: Stable Scripts Dicyclomine HCl (Bentyl) 20 Mg Tab 1 TAB PO TID for irritable bowel symptoms for 10 Days, #30 TAB 0 Refills Prov: LUCY ORELLANA DO 05/24/24 Additional Instructions: Your symptoms are consistent with enteritis, or a lower gastrointestinal infection. This often causes diarrhea. Your lab work (CBC, BMP, liver function tests, lipase, urinalysis) is stable. The CT scan of your abdomen and pelvis with contrast does not show any life- threatening or dangerous pathologies. You received IV fluids and IV Toradol here in the ER. I have prescribed Bentyl. You can take this up to 3 times a day as needed for pain and abdominal cramping. You can also take [id number] Tylenol (650 mg) or ibuprofen (600 mg) as needed for pain. Continue taking the antibiotics that you were prescribed by her primary doctor. As we discussed, there is a very small chance that you have an early appendicitis or other dangerous pathology in your abdomen. Please monitor for further symptoms over the next few days. If you develop severe abdominal tenderness, persistent vomiting, or any other concerning symptoms please return to the emergency department for re-evaluation. Referrals: SELENE EDWARDS PA-C (PCP) LUCY ORELLANA DO May 24, 2024 03:18
[2024-05-24 03:27] LABS: BILIRUBIN,URINE NEGATIVE (NEGATIVE); COLOR,URINE LIGHT-YELLOW (YELLOW); GLUCOSE, URINE (UA) NEGATIVE (NEGATIVE); KETONES,URINE NEGATIVE (NEGATIVE); LEUKOCYTE ESTERASE ,URINE NEGATIVE Leu/uL (NEGATIVE); NITRATE,URINE NEGATIVE (NEGATIVE); OCCULT BLOOD,URINE NEGATIVE (NEGATIVE); PH,URINE 5.5 (5.0-8.0); PROTEIN,URINE NEGATIVE (NEGATIVE); UROBILINOGEN,URINE 0.2 mg/dL (0.2-1.0)
[2024-05-24 03:30] LABS: ADD UA MICROSCOPIC YES; APPEARANCE,URINE SLIGHTLY CLOUDY (CLEAR); HCG,QUALITATIVE URINE NEGATIVE (NEGATIVE)
[2024-05-24 03:33] LABS: MUCUS,URINE RARE LPF (None Seen); RBC,URINE 0-1 /HPF (0-1); SQUAMOUS EPITHELIAL CELL,UR MANY /HPF (0-2); WBC,URINE 0-1 /HPF (0-1)
[2024-05-24 03:49] LABS: BASOPHILS # (AUTO) 0.02 K/uL (0.00-0.20); BASOPHILS % (AUTO) 0.3 % (0.0-5.0); EOSINOPHILS # (AUTO) 0.25 K/uL (0.00-0.70); EOSINOPHILS % (AUTO) 3.3 % (0.0-8.0); HEMATOCRIT 38.7 % (36-48); IMMATURE GRANULOCYTE ABSOLUTE 0.05 K/uL (0-1); LYMPHOCYTES # (AUTO) 1.4 K/uL (1.0-4.8); MEAN CORPUSCULAR HGB CONC 32.8 g/dL (32.0-36.0); MEAN CORPUSCULAR VOLUME 82.3 fL (79-99); MONOCYTES # (AUTO) 0.5 K/uL (0.1-1.0); NEUTROPHILS # (AUTO) 5.4 K/uL (1.8-7.7); NEUTROPHILS % (AUTO) 71.7 % (40.0-77.0); PLATELET COUNT (AUTO) 252 K/uL (130-400); RED CELL DISTRIBUTION WIDTH 13.9 % (11.0-15.5); WHITE BLOOD COUNT (AUTO) 7.5 K/uL (4.8-10.8)
[2024-05-24] MEDS: ondanSETRON 4MG INJ IVP ONE (03:51)
[2024-05-24] MEDS: 0.9%NACL 1000ML 1,000 ML IV ONE (03:52)
[2024-05-24] MEDS ORDERED: IOHEXOL-350 75 ML VIAL IV ONE (03:53)
[2024-05-24] MEDS: ketOROlac 15MG/ML VIAL (15MG/ML) IV ONE (03:55)
[2024-05-24 03:59] LABS: CREATININE 0.6 mg/dL (0.5-1.0); POTASSIUM 3.4 mmol/L (3.5-5.1)
[2024-05-24 04:03] LABS: ALBUMIN 3.7 g/dL (3.5-5.0); BILIRUBIN,DIRECT 0.1 mg/dL (0.0-0.3); BILIRUBIN,TOTAL 0.4 mg/dL (0.2-1.0); TOTAL PROTEIN, SERUM 8.1 g/dL (6.0-8.3)
[2024-05-24] MEDS ORDERED: DICY20TA2 PO (05:40)
[2024-05-24 05:56] VITALS: BP 114/60; PULSE 88; RESP 16; O2SAT 99
--- NOTE | 2024-05-24 08:20 | HMCIMG ---
CT ABDOMEN WITH CONTRAST. CT PELVIS WITH CONTRAST INDICATION: Lower abdominal pain TECHNIQUE: Routine transaxial images using 5 mm slice thickness were obtained after the intravenous infusion of 75 mL of Omnipaque 350 without adverse effects. Oral contrast was not administered. Rectal contrast was not administered. Coronal and sagittal reformatted images acquired for interpretation. CT was performed with one or more of the following dose reduction techniques: Automated exposure control, adjustment of the mA and/or kV according to patient size, or use of iterative reconstruction technique. COMPARISON: 02/23/2024 FINDINGS: ABDOMEN: Heart size is normal. Visible lung bases are clear. The liver is normal in size and smooth in contour without lesions or biliary duct dilation. The spleen is normal in size without lesions. The gallbladder is absent. The pancreas appears normal without pancreatic duct dilation. The adrenal glands appear normal. Both kidneys appear unremarkable. Cortical nephrograms are symmetric and normal in appearance bilaterally. No evidence for intra-abdominal free air or organized fluid collection. No retrocrural, intraabdominal, or retroperitoneal lymphadenopathy identified. No aortic aneurysmal dilation or dissection identified. PELVIS: No evidence for free air or organized pelvic fluid collection. No significant pelvic adenopathy detected. Focal inflammatory epiploic appendage along the anterior wall of the distal descending colon on image 42 of series 6. Terminal ileum appears normal. The appendix appears normal. The urinary bladder appears unremarkable. 2.5 cm left ovarian cyst. scarring noted. Visible osseous structures are intact. IMPRESSION: 1. Distal descending colonic epiploic appendagitis. 2. 2.5 cm left ovarian cyst. 3. Additional minor findings and pertinent negatives as reported.
== END 2024-05-24 05:58 | disposition home or self-care (01) ==
LOC: EDH 03:11
DX: K52.9 Noninfective gastroenteritis and colitis, unspecified (principal); K21.9 Gastro-esophageal reflux disease without esophagitis; Z79.899 Other long term (current) drug therapy; Z88.6 Allergy status to analgesic agent; Z90.49 Acquired absence of other specified parts of digestive tract; Z98.890 Other specified postprocedural states
CPT/HCPCS: 99285; 74177; 96374; 96361; 96375; 82550; 80076; 80048; 83690; 85025; 81001; 81025; 36415; J7030; J2405; J1885; Q9967

== ENCOUNTER 2024-07-11 21:34 | Emergency (ER) | payer MEDICAID ==
[~2024-07-11] VITALS: Ht 152.4 cm; Wt 68.0 kg
[~2024-07-11 21:34] MED LIST changes: +DICY20TA2 PO
--- NOTE | 2024-07-11 21:43 | NUR ---
COVID, AND FLU SWABS COLLECTED AND SENT
[2024-07-11 22:02] LABS: SARS-CoV-2, RNA, NAAT NEGATIVE SARS CoV-2 (NEGATIVE)
[2024-07-11 22:06] LABS: INFLUENZA TYPE A Negative For Type A (NEGATIVE); INFLUENZA TYPE B Negative For Type B (NEGATIVE)
[2024-07-11 23:08] VITALS: TEMP 99.1
[2024-07-11] MEDS: acetaMINOPHEN 500 MG TABLET PO STA (23:08)
--- NOTE | 2024-07-11 23:34 | ERN ---
ED Note History of Present Illness Stated Complaint: SOB,LIGHT HEADED Chief Complaint: Shortness of Breath Time Seen by MD: 21:37 Time Seen by Midlevel: 21:44 Dictation: 28-year-old female with a history of asthma coming in complaining of shortness a breath and pain to the right rib area. 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 Denies having any chest pain, fever, cough, nausea, vomiting or congestion. Patient states she panics and feels like she can catch her breath. Allergies: Coded Allergies: No Known Drug Allergies (Verified Allergy, Unknown, 09/15/14) aspirin (Unverified Allergy, Unknown, HIVES, 12/24/20) Home Meds Active Scripts Dicyclomine HCl (Bentyl) 20 Mg Tab, 1 TAB PO TID for irritable bowel symptoms for 10 Days, #30 TAB 0 Refills Prov:LUCY ORELLANA DO 05/24/24 Loratadine (Loratadine) 10 Mg Tablet, 1 TAB PO DAILY for allergy symptoms for 30 Days, #30 TAB 0 Refills Prov:CHRISTOPHER BANUELOS MD 05/05/24 Fluticasone Propionate (Flonase Nasal [place]) 50 Mcg/Actuation [place], 2 SPRAY NS DAILY, #16 GM 0 Refills Prov:CHRISTOPHER BANUELOS MD 05/05/24 Amoxicillin/Potassium Clav (Amox Tr-K Clv 875-125 mg Tab) 875 Mg-125 Mg Tablet, 1 TAB PO BID for 10 Days, #20 TAB 0 Refills Prov:CHRISTOPHER BANUELOS MD 05/05/24 Amoxicillin/Potassium Clav (Amox Tr-K Clv 875-125 mg Tab) 875 Mg-125 Mg Tablet, 1 EACH PO BID for 7 Days, #14 TAB 0 Refills Prov:MOHIT BUSBY 04/05/24 Hydrocortisone (Hydrocortisone 1% 28.35GM) 1 % Crm, 2 GM TP BID for 7 Days, #28.3 G Prov:MOHIT BUSBY 04/05/24 Mupirocin Calcium (Mupirocin) 2 % Cream..g., 1 GM TP BID for 7 Days, #15 GM Prov:MOHIT BUSBY 04/05/24 Acetaminophen (Tylenol) 325 Mg Tablet, 650 MG PO Q6H PRN for PAIN LEVEL 1 TO 3, #30 TAB Prov:PAO BRESWTER 02/27/24 Reported Medications Albuterol Sulfate (Ventolin Hfa) 90 Mcg Hfa.aer.ad, 2 PUFF IH Q4HPRN PRN for SHORTNESS OF BREATH 12/13/23 Past Medical History Past Medical History: Asthma Surgical History: Surgical History Other: 3 C SECTIONS, COSMETIC SURGERY 01/30, HERNIA Social History: Negative, Lives with family LMP: Jun 10, 2024 : 4 Para: 4 Aborts: 0 Review of System Dictation Constitutional: Negative for fever,chills, and weight loss Eyes: Negative for injury, pain,redness, and discharge ENT: Negative for injury,pain or swelling Cardiovascular: Negative for chest pain, palpitations, and edema Respiratory: Complaining of shortness a breath, no wheezing Abdomen/GI: Negative for abdominal pain, nausea, vomiting, diarrhea, and constipation Back: Negative for injury and pain : Negative for injury, bleeding and discharge MS/Extremity: Negative for injury and deformity Skin: Negative for rash, and discoloration Neuro: Negative for headache, weakness, numbness, tingling, and seizure Psych: Negative for suicide ideation, homicidal ideation, and hallucinations Review of Systems: was completed Initial Vital Sign VS Vital Signs Date Time Temp Pulse Resp B/P (MAP) Pulse Ox O2 Delivery O2 Flow Rate FiO2 07/11/24 21:35 99.1 100 20 125/84 100 Room Air 07/12/24 00:33 0 21 Physical Exam Dictation General: awake, alert, NAD Head/Face: Normocephalic, atraumatic Eyes: PERRL, EOMI, vision at baseline ENT: oral cavity clear, TMs clear, no signs of infection Neck: Trachea midline, supple, no nuchal rigidity Cardiovascular: RRR, normal S1/S2, No MRGs, no JVD Respiratory: CTAB, no respiratory distress, No rales or wheezes Abdomen: Soft, non-tender, non-distended, normal bowel sounds, no guarding or rebound. Skin: Warm, dry, normal turgor, no rash MS/Extremity: Pulses equal, no cyanosis, neurovascular intact, FROM Neuro: COAx4, GCS 15, strength 5/5, CN 2-12 intact, normal cerebellar exam, normal gait, Psych: Normal behavior, mood, and affect normal Results (Laboratory/Radiology) Laboratory/Radiology Laboratory Tests Test 07/11/24 21:43 Influenza Type A Antigen Negative For Type A Influenza Type B Antigen Negative For Type B SARS-CoV-2, RNA, NAAT NEGATIVE SARS CoV-2 Labs Reviewed?: Yes ED Course ED Course Orders Procedure Category Date Status Time Covid Rna Naat LAB 07/11/24 Complete 21:42 Influenza Type A & B, LAB 07/11/24 Complete Rapid 21:42 Chest 1vw RAD 07/11/24 Taken 22:40 Acetaminophen 500mg PHA 07/11/24 Complete Tab (Tylenol 500mg T 22:40 Current Medications Medications (Trade) Dose Ordered Sig/Holl[place] Route PRN Reason Start Time Stop Time Status Last Admin Dose Admin Acetaminophen (TYLenol 500MG TAB) 1,000 mg ONCE STAT PO 07/11/24 22:40 07/11/24 22:41 DC 07/11/24 23:08 Vital Signs Date Time Temp Pulse Resp B/P (MAP) Pulse Ox O2 Delivery O2 Flow Rate FiO2 07/12/24 00:33 99.1 79 18 124/87 100 Room Air* 0 21 07/11/24 23:08 99.1 07/11/24 21:35 99.1 100 20 125/84 100 Room Air Medical Decision Making MDM MDM: 28-year-old female with a history of asthma coming in complaining of shortness a breath and pain to the right rib area. 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 Denies having any chest pain, fever, cough, nausea, vomiting or congestion. Patient states she panics and feels like she can catch her breath. Chest x-ray is normal, no acute pulmonary process, interpreted by me. Patient is negative for flu and COVID. Discussed findings with the patient. Discussed with patient that more than likely it sounds like she has anxiety. Patient was given Vistaril p.o. and does charge home to follow up with PCP. Educated on signs and symptoms when to return back to the ER. Patient verbalized understanding, answered all q uestions. Differential diagnosis: Asthma attack, pneumonia, COVID, influenza, anxiety Rationale: Tests considered and ordered secondary to shared decision making include: Previous outside records reviewed: Old ER visits. Risk of complication and/or morbidity or mortality of patient management: None Medications-Per medication reconciliation Need for hospitalization: Patient does not meet criteria for hospitalization. Need for emergency major/minor surgery: No There are no social concerns with this patient. Prescription drug management Prescriptions will include symptomatic care Patient's prior external medical records from other ER visits were reviewed by me as indicated. Prior testing and results from previous visits were reviewed. Prior tests were taken into account with medical decision making and resource utilization, independent historian/historians were used to obtain complete medical history. I independently interpreted the test that were performed, results were reviewed by me and considered findings on radiology if ordered. Medical management and examination interpretation discussions were had by me with other qualified healthcare professionals as indicated for the patient's care. DX & DISP Disposition: Discharge Departure Impression: Primary Impression: Anxiety Condition: Stable Additional Instructions: Please follow up with your primary doctor in 1-2 days. Return to the ER if you have any worsening symptoms. Referrals: SELENE EDWARDS PA-C (PCP) Time of Disposition: 00:38 I have reviewed the case, and I agree with, Diagnosis and Plan BRIAN SCHAWRTZ NP Jul 11, 2024 23:34
--- NOTE | 2024-07-11 23:58 | NUR ---
REPORT TO MILAGRO ADAMS
[2024-07-12 00:33] VITALS: BP 124/87; PULSE 79; RESP 18; TEMP 99.1; O2SAT 100
[2024-07-12] MEDS: hydrOXYzine 25 MG TABLET PO STA (00:50)
--- NOTE | 2024-07-12 08:31 | HMCIMG ---
CHEST 1VW REASON: sob COMPARISON: 08/10/2020 FINDINGS: Single view of the chest was obtained. Lungs are clear. Heart size is normal. There is no pulmonary vascular congestion. Mediastinum and bony thorax appear unremarkable. IMPRESSION: 1. Normal single view chest x-ray.
== END 2024-07-12 00:53 | disposition home or self-care (01) ==
LOC: EDH 21:34
DX: F41.9 Anxiety disorder, unspecified (principal); J45.909 Unspecified asthma, uncomplicated; Z20.822 Contact with and (suspected) exposure to COVID-19; Z79.899 Other long term (current) drug therapy; Z88.6 Allergy status to analgesic agent; Z98.890 Other specified postprocedural states
CPT/HCPCS: 71045; 87635; 87804; 99284

== ENCOUNTER 2024-12-05 19:25 | Emergency (ER) | payer BC, MEDICAID ==
[~2024-12-05] VITALS: Ht 152.4 cm; Wt 68.9 kg
--- NOTE | 2024-12-05 19:29 | NUR ---
UA CUP PROVIDED
[2024-12-05 19:56] LABS: APPEARANCE,URINE CLEAR (CLEAR); BILIRUBIN,URINE NEGATIVE (NEGATIVE); COLOR,URINE COLORLESS (YELLOW); GLUCOSE, URINE (UA) NEGATIVE (NEGATIVE); KETONES,URINE NEGATIVE (NEGATIVE); LEUKOCYTE ESTERASE ,URINE NEGATIVE Leu/uL (NEGATIVE); NITRATE,URINE NEGATIVE (NEGATIVE); OCCULT BLOOD,URINE NEGATIVE (NEGATIVE); PROTEIN,URINE NEGATIVE (NEGATIVE); UROBILINOGEN,URINE 0.2 mg/dL (0.2-1.0)
[2024-12-05 19:57] LABS: BASOPHILS # (AUTO) 0.05 K/uL (0.00-0.20); BASOPHILS % (AUTO) 0.5 % (0.0-5.0); EOSINOPHILS # (AUTO) 0.39 K/uL (0.00-0.70); EOSINOPHILS % (AUTO) 3.9 % (0.0-8.0); IMMATURE GRANULOCYTE ABSOLUTE 0.09 K/uL (0-1); LYMPHOCYTES # (AUTO) 1.8 K/uL (1.0-4.8); LYMPHOCYTES % (AUTO) 17.9 % (21.0-51.0); MEAN CORPUSCULAR HEMOGLOBIN 29.7 pg (27.0-33.0); MEAN CORPUSCULAR HGB CONC 34.9 g/dL (32.0-36.0); MEAN CORPUSCULAR VOLUME 85.1 fL (79-99); MONOCYTES # (AUTO) 0.6 K/uL (0.1-1.0); MONOCYTES % (AUTO) 6.2 % (3.0-13.0); NEUTROPHILS % (AUTO) 70.6 % (40.0-77.0); PLATELET COUNT (AUTO) 256 K/uL (130-400); RED BLOOD CELL COUNT(AUTO) 4.35 MIL/uL (4.00-5.50); WHITE BLOOD COUNT (AUTO) 9.9 K/uL (4.8-10.8)
[2024-12-05 20:04] LABS: ADD UA MICROSCOPIC NO
[2024-12-05 20:06] LABS: CREATININE 0.6 mg/dL (0.5-1.0); POTASSIUM 3.6 mmol/L (3.5-5.1)
--- NOTE | 2024-12-05 20:12 | ERN ---
ED Note History of Present Illness Stated Complaint: CHEST PAIN, VOMITING, HIGH BP Chief Complaint: Multiple Complaints Time Seen by MD: 19:40 Time Seen by Midlevel: 20:00 Dictation: Ms Hernandez is a 29-year-old female with history of asthma and hyperlipidemia who presented to the emergency department this evening for evaluation of chest pain. She reports elevated blood pressure readings, intermittent anterior chest pain, nausea, vomiting, dizziness, and rapid heart rate. She states that she has been told she had elevated blood pressure readings. She recently changed her to a healthy diet and has been avoiding caffeine. She has lost 10 lb in the last two months. She denies having fever, chills, shortness of breath, cough, edema, abdominal pain, diarrhea, hematemesis, melena, hematochezia, or headache. She denies use of alcohol or recreational drugs. She states she has not taken the [id number] medications with the exception of fish oil and vitamin D3. She states of menses have been irregular but she is on the Nexplanon. 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 She recently resumed her insurance and plans to see a a physician at [facility] Familiar Allergies: Coded Allergies: No Known Drug Allergies (Verified Allergy, Unknown, 09/15/14) aspirin (Unverified Allergy, Unknown, HIVES, 12/24/20) Home Meds Active Scripts Famotidine (Famotidine) 20 Mg Tablet, 1 TAB PO BID for 30 Days, #60 TAB 0 Refills Prov:JEANNETTE ROMAN MATERIAL ASSEMBLER 12/05/24 Dicyclomine HCl (Bentyl) 20 Mg Tab, 1 TAB PO TID for irritable bowel symptoms for 10 Days, #30 TAB 0 Refills Prov:LUCY ORELLANA DO 05/24/24 Loratadine (Loratadine) 10 Mg Tablet, 1 TAB PO DAILY for allergy symptoms for 30 Days, #30 TAB 0 Refills Prov:CHRISTOPHER BANUELOS MD 05/05/24 Fluticasone Propionate (Flonase Nasal [place]) 50 Mcg/Actuation [place], 2 SPRAY NS DAILY, #16 GM 0 Refills Prov:CHRISTOPHER BANUELOS MD 05/05/24 Amoxicillin/Potassium Clav (Amox Tr-K Clv 875-125 mg Tab) 875 Mg-125 Mg Tablet, 1 TAB PO BID for 10 Days, #20 TAB 0 Refills Prov:CHRISTOPHER BANUELOS MD 05/05/24 Amoxicillin/Potassium Clav (Amox Tr-K Clv 875-125 mg Tab) 875 Mg-125 Mg Tablet, 1 EACH PO BID for 7 Days, #14 TAB 0 Refills Prov:MOHIT BUSBY 04/05/24 Hydrocortisone (Hydrocortisone 1% 28.35GM) 1 % Crm, 2 GM TP BID for 7 Days, #28.3 G Prov:MOHIT BUSBY 04/05/24 Mupirocin Calcium (Mupirocin) 2 % Cream..g., 1 GM TP BID for 7 Days, #15 GM Prov:MOHIT BUSBY 04/05/24 Acetaminophen (Tylenol) 325 Mg Tablet, 650 MG PO Q6H PRN for PAIN LEVEL 1 TO 3, #30 TAB Prov:PAO BREWTSER 02/27/24 Reported Medications Albuterol Sulfate (Ventolin Hfa) 90 Mcg Hfa.aer.ad, 2 PUFF IH Q4HPRN PRN for SHORTNESS OF BREATH 12/13/23 Past Medical History Past Medical History: Asthma, High Cholesterol Surgical History: Surgical History Other: 3 C SECTIONS, COSMETIC SURGERY 01/30, HERNIA PSYCH History: no pertinent psych hx Social History: Negative, Lives with family : 4 Para: 4 Aborts: 0 RN Note Reviewed/Agreed w/PFSH: Yes Review of System Dictation REVIEW OF SYSTEMS: CONSTITUTIONAL: Patient denies fevers, chills, sweats and weight changes. EYES: Patient denies any visual symptoms. EARS, NOSE, AND THROAT: No difficulties with hearing. No symptoms of rhinitis or sore throat. CARDIOVASCULAR: Patient denies orthopnea and paroxysmal nocturnal dyspnea. Reports intermittent rapid heart rate and chest pain RESPIRATORY: No dyspnea on exertion, no wheezing or cough. GI: No diarrhea, constipation, hematochezia or melena. Reports epigastric pain and nausea with emesis : No urinary hesitancy or dribbling. No nocturia or urinary frequency. No abnormal urethral discharge. MUSCULOSKELETAL: No myalgias or arthralgias. NEUROLOGIC: No chronic headaches, no seizures. Patient denies numbness, tingling or weakness. Reported dizziness PSYCHIATRIC: Patient denies problems with mood disturbance. Reports feeling anxious. ENDOCRINE: No excessive urination or excessive thirst. DERMATOLOGIC: Patient denies any rashes or skin changes. Initial Vital Sign VS Vital Signs Date Time Temp Pulse Resp B/P (MAP) Pulse Ox O2 Delivery O2 Flow Rate FiO2 12/05/24 19:26 98.8 114 20 143/98 98 Room Air Physical Exam Dictation Vital signs: Reviewed. AFib Constitutional: No acute distress. Non-toxic appearing. Head/Face: Normocephalic, atraumatic. Eyes: Periorbital areas with no swelling, redness, or edema. Lids and lashes are normal. Conjunctival injection is absent. Sclera anicteric. Pupils equal, round, reactive to light. ENT: Pinnas intact and no signs of trauma or erythema. Ear canals clear and no discharge. TMs no erythema. No nasal discharge or bleeding noted. Oropharynx with no exudate, redness, swelling, masses, exudates, or evidence of obstruction. Uvula midline. Mucous membranes moist. Neck: Trachea midline, no masses palpated, and no cervical lymphadenopathy. No swelling. Supple, full range of motion. Chest/Axilla: No tenderness, no crepitus, no paradoxical movement, no retractions. Cardiovascular: Regular rate, regular rhythm, no murmur, no gallops. Symmetric pulses. No peripheral edema. 12 lead EKG reflects a sinus tachycardia without ST elevation or depression. Respiratory: Respirations even and unlabored. Lung sounds clear; no wheezes, rales or rhonchi. Room air SpO2 99% Gastrointestinal: Inspection is normal. No distention is appreciated. Bowel sounds are normal. No mass or organomegaly . There is no tenderness. No rebound. No rigidity. No voluntary or involuntary guarding. No Nguyen's sign. Neurological: Normal speech, gross motor function intact, gross sensory function intact. No focal weakness/Paresthesia. Musculoskeletal/Extremities: All extremities have full range of motion, no pain or tenderness on palpation. Symmetric pulses. Integumentary: Intact. Skin is normal color, warm and dry. Cap refill less than 2 seconds. Results (Laboratory/Radiology) Laboratory/Radiology Laboratory Tests Test 12/05/24 18:45 12/05/24 19:37 12/05/24 19:45 12/05/24 20:56 Thyroid Stimulating Hormone (TSH) 1.42 uIU/mL (0.36-3.74) Urine Color COLORLESS (YELLOW) Urine Appearance CLEAR (CLEAR) Urine pH 7.0 (5.0-8.0) Urine Specific [place] 1.002 (1.001-1.031) Urine Protein NEGATIVE mg/dL (NEGATIVE) Urine Glucose (UA) NEGATIVE mg/dL (NEGATIVE) Urine Ketones NEGATIVE mg/dL (NEGATIVE) Urine Occult Blood NEGATIVE (NEGATIVE) Urine Nitrate NEGATIVE (NEGATIVE) Urine Bilirubin NEGATIVE mg/dL (NEGATIVE) Urine Urobilinogen 0.2 mg/dL (0.2-1.0) Urine Leukocyte Esterase NEGATIVE Lilli/uL Urine Opiates Screen NEGATIVE (NEGATIVE) Urine Barbiturates Screen NEGATIVE (NEGATIVE) Urine Phencyclidine Screen NEGATIVE (NEGATIVE) Urine Amphetamines Screen NEGATIVE (NEGATIVE) Urine Benzodiazepines Screen NEGATIVE (NEGATIVE) Urine Cocaine Screen NEGATIVE (NEGATIVE) Urine Marijuana (THC) Screen NEGATIVE (NEGATIVE) White Blood Count 9.9 K/uL (4.8-10.8) Red Blood Count 4.35 MIL/uL (4.00-5.50) Hemoglobin 12.9 g/dL (12.0-16.0) Hematocrit 37.0 % (36-48) Mean Corpuscular Volume 85.1 fL (79-99) Mean Corpuscular Hemoglobin 29.7 pg (27.0-33.0) Mean Corpuscular Hemoglobin Concent 34.9 g/dL (32.0-36.0) Red Cell Distribution Width 13.0 % (11.0-15.5) Platelet Count 256 K/uL (130-400) Mean Platelet Volume 10.3 fL (7.5-10.5) Immature Granulocyte % (Auto) 0.9 % (0-1) Neutrophils (%) (Auto) 70.6 % (40.0-77.0) Lymphocytes (%) (Auto) 17.9 % (21.0-51.0) L Monocytes (%) (Auto) 6.2 % (3.0-13.0) Eosinophils (%) (Auto) 3.9 % (0.0-8.0) Basophils (%) (Auto) 0.5 % (0.0-5.0) Neutrophils # (Auto) 7.0 K/uL (1.8-7.7) Lymphocytes # (Auto) 1.8 K/uL (1.0-4.8) Monocytes # (Auto) 0.6 K/uL (0.1-1.0) Eosinophils # (Auto) 0.39 K/uL (0.00-0.70) Basophils # (Auto) 0.05 K/uL (0.00-0.20) Absolute Immature Granulocyte (auto 0.09 K/uL (0-1) Nucleated Red Blood Cells 0.0 % (0.0-0.19) Sodium Level 141 mmol/L (136-145) Potassium Level 3.6 mmol/L (3.5-5.1) Chloride Level 106 mmol/L (101-111) Carbon Dioxide Level 24 mmol/L (21-32) Blood Urea Nitrogen 11 mg/dL (7-18) Creatinine 0.6 mg/dL (0.5-1.0) Glomerular Filtration Rate Calc 123 mL/min (>90) Random Glucose 118 mg/dL (70-105) H Total Calcium 8.8 mg/dL (8.5-10.1) Total Creatine Kinase 58 U/L (21-232) Troponin I High Sensitivity < 4 ng/L (4-50) L < 4 ng/L (4-50) L B-Type Natriuretic Peptide < 5 pg/mL (0-100) Lipase 35 U/L (16-77) Labs Reviewed?: Yes EKG Comment: EKG Interpretation: Time Reviewed: 1938 Normal sinus rhythm Ventricular rate: 107 bpm [place] Interval: [197] ms QRS duration: [101] ms No ST segment elevation or depression. Clinical impression: Sinus tachycardia EKG Reviewed and interpreted by Dr. Moreira EKG Interpretation: Time Reviewed:2129 Normal sinus rhythm Ventricular rate: 89] bpm [place] Interval: 181 ms QRS duration: 100] ms No ST segment elevation or depression. Clinical impression: Sinus rhythm EKG Reviewed and interpreted by Dr. Moreira ED Course ED Course Orders Procedure Category Date Status Time Vital Signs Per CPOE 12/05/24 Transmitted Routine 19:29 B-Type Natriuretic LAB 12/05/24 Complete Peptide 19:29 Chest 1vw RAD 12/05/24 Resulted 19:29 12 Lead Ekg Tracing- EKG 12/05/24 Complete Technical 19:29 Oxygen By Nc/Pulse Ox CPOE 12/05/24 Transmitted 19:29 Maintain Iv CPOE 12/05/24 Transmitted 19:29 Iv Insertion CPOE 12/05/24 Transmitted 19:29 Cardiac Monitoring CPOE 12/05/24 Transmitted 19:29 Pulse Oximetry With CPOE 12/05/24 Transmitted Vs And Prn 19:29 Cbc With Differential LAB 12/05/24 Complete 19:29 Activity: Br W/Brp CPOE 12/05/24 Transmitted With Assist 19:29 Creatine Kinase, Total LAB 12/05/24 Complete 19:29 Troponin I High LAB 12/05/24 Complete Sensitivity 19:29 Urinalysis Profile LAB 12/05/24 Complete 19:29 Basic Metabolic Panel LAB 12/05/24 Complete 19:29 Lipase LAB 12/05/24 Complete 20:11 Drug Screen Urine LAB 12/05/24 Complete 20:11 Ondansetron Odt 4mg PHA 12/05/24 In Process Tab (Zofran 4mg Odt) 20:30 Thyroid Stimulating LAB 12/05/24 Complete Hormone 20:47 Troponin I High LAB 12/05/24 Complete Sensitivity 20:47 12 Lead Ekg Tracing- EKG 12/05/24 Logged Technical 21:24 *Nursing CPOE 12/05/24 Transmitted Communication: 21:36 Lidocaine Hcl 2% PHA 12/05/24 In Process Viscous (Lidocaine Hcl 22:00 Compound Po Misc PHA 12/05/24 In Process (Compound Po Misc) 22:00 Current Medications Medications (Trade) Dose Ordered Sig/Hollis Route PRN Reason Start Time Stop Time Status Last Admin Dose Admin Lidocaine HCl/Al Hydroxide/Mg Hydroxide/ Dicyclomine HCl 20ML OR AD Q6H PRN PO INDIGESTION 12/05/24 22:00 01/04/25 21:59 Ondansetron HCl (zoFRAN 4MG ODT) 4 mg ONCE SL 12/05/24 20:30 12/05/24 23:59 12/05/24 20:37 Vital Signs Date Time Temp Pulse Resp B/P (MAP) Pulse Ox O2 Delivery O2 Flow Rate FiO2 12/05/24 19:26 98.8 114 20 143/98 98 Room Air Uneventful ED course. Upon arrival to the emergency department noted tachycardia. Twelve lead EKG reflects a sinus tachycardia without ST elevation or depression. BP elevated at 143/98. Laboratory findings as noted below. No elevation of WBCs. H&H are stable. UDS negative troponin negative x2. She continues to have intermittent episodes of palpitations. A repeat EKG revealed sinus rhythm without ST elevation. She did received doses Zofran as well as GI cocktail. Findings were discussed with patient as well as recommendations for follow up with PCP and/or dynamite packing machine feeder for Holter monitoring. All questions were answered. HEART Score Response (Comments) Value History: Moderate suspicion (+1) 1 EKG: Normal 0 Age: < 45yrs (0) 0 Risk Factors: No known risk factors (0) 0 Initial Troponin: Normal limit (0) 0 HEART Score Risk: Low Risk for MACE (1-3) Total 1 Medical Decision Making MDM MDM: Differential diagnosis: ACS, gastritis, hypothyroidism, anxiety Rationale: Tests considered and ordered secondary to shared decision making include EKG, lab: Previous outside records reviewed: Old ER visits. Risk of complication and/or morbidity or mortality of patient management: None Medications-Per medication reconciliation Need for hospitalization: Patient does not meet criteria for hospitalization. Need for emergency major/minor surgery: No There are no social concerns with this patient. Prescription drug management: Pepcid Prescriptions will include symptomatic care Patient's prior external medical records from other ER visits were reviewed by me as indicated. Prior testing and results from previous visits were reviewed. Prior tests were taken into account with medical decision making and resource utilization, independent historian/historians were used to obtain complete medical history. I independently interpreted the test that were performed, results were reviewed by me and considered findings on radiology if ordered. Medical management and examination interpretation discussions were had by me with other qualified healthcare professionals as indicated for the patient's care. DX & DISP Disposition: Discharge Departure Impression: Primary Impression: Palpitations Additional Impressions: Elevated blood pressure reading, Gastritis Condition: Stable Scripts Famotidine (Famotidine) 20 Mg Tablet 1 TAB PO BID for 30 Days, #60 TAB 0 Refills Prov: JEANNETTE ROMAN NP 12/05/24 Additional Instructions: Rest. Drink plenty of fluids. Continue heart healthy diet; low sodium. Avoid caffeine. Keep a log of all your symptoms and blood pressure readings. You will need to follow up with your primary care provider at [facility] in the next 1-2 days. You may benefit from referral to dynamite packing machine feeder for Holter monitor. Referrals: SELENE EDWARDS PA-C (PCP) Time of Disposition: 20:50 JEANNETTE ROMAN NP December 05, 2024 20:12
--- NOTE | 2024-12-05 20:25 | HMCIMG ---
PORTABLE CHEST RADIOGRAPH INDICATION: CHEST PAIN COMPARISON: 07/11/2024 FINDINGS: Heart size is normal. The pulmonary vascularity and jessica appear normal. No abnormal pulmonary parenchymal opacity or consolidation identified. No significant pleural effusion noted. No pneumothorax detected. IMPRESSION: No radiographic evidence for any acute cardiopulmonary process.
[2024-12-05] MEDS: ondanSETRON ODT 4MG TAB SL SCH (20:37)
[2024-12-05 20:57] LABS: B-TYPE NATRIURETIC PEPTIDE < 5 pg/mL (0-100)
[2024-12-05 20:59] LABS: AMPHET/METH SCREEN,URINE NEGATIVE (NEGATIVE); BARBITURATE SCREEN, URINE NEGATIVE (NEGATIVE); BENZODIAZEPINES SCREEN,URINE NEGATIVE (NEGATIVE); CANNABINOID SCREEN,URINE NEGATIVE (NEGATIVE); COCAINE SCREEN,URINE NEGATIVE (NEGATIVE); OPIATE SCREEN,URINE NEGATIVE (NEGATIVE); PHENCYCLIDINE SCREEN,URINE NEGATIVE (NEGATIVE)
--- NOTE | 2024-12-05 21:30 | EKG ---
[facility] Test Date: 2024-12-05 Test Time: 19:39:04 Pat Name: DOROTHEA MARIEE Department: ED Room: Gender: F Color Making Supervisor: [id number] : 1995 Requested By: MARY JEWELL Order Number: [id number] Reading MD: Nneka Burkett Measurements Intervals [place] Rate: 107 P: 52 GA: 197 QRS: 53 QRSD: 101 T: 14 QT: 327 QTc: 437 Interpretive Statements Sinus tachycardia Borderline prolonged GA interval Compared to ECG 02/07/2023 21:13:48 Sinus rhythm no longer present Electronically Signed On 12-08-2024 14:20:10 CDT by Nneka Burkett Please click the below link to view image of tracing.
[2024-12-05] MEDS ORDERED: COMPOUND PO MISCELLANEOUS 1 EACH MISC MISC PRN (22:00)
[2024-12-05] MEDS ORDERED: FAMO20TA8 PO (22:30)
[2024-12-05] MEDS: LIDO 2% VISC 30ML+MAG/AL/SIMETH 30ML+DICYCLOMINE 20MG 10ML PO PRN (22:59)
[2024-12-05] MEDS: 0.9% NACL 500ML IV.SOLN 500 ML IV SCH (23:39)
--- NOTE | 2024-12-05 23:47 | NUR ---
INDECISIVE ABOUT 500ML BOLUS, REPORTS SHE IS FEELING BETTER.
[2024-12-05 23:50] VITALS: BP 126/59; PULSE 84; RESP 18; TEMP 97.9; O2SAT 98
--- NOTE | 2024-12-05 23:56 | NUR ---
PT IS FEELING BETTER REFUSING TO FINISH 500ML BOLUS IS WANTING TO LEAVE AT THIS TIME. PROVIDER UPDATED.
--- NOTE | 2024-12-06 09:41 | EKG ---
[facility] Test Date: 2024-12-05 Test Time: 21:30:09 Pat Name: DOROTHEA MARIEE Department: ED Room: Gender: F Polysomnograph Tech: [id number] : 1995 Requested By: JEANNETTE ROMAN Order Number: [id number] Reading MD: Nneka Burkett Measurements Intervals [place] Rate: 89 P: 37 ID: [id number] QRS: 50 QRSD: 100 T: 15 QT: 337 QTc: 411 Interpretive Statements Sinus rhythm Compared to ECG 12/05/2024 19:39:04 Sinus tachycardia no longer present Electronically Signed On 12-08-2024 14:20:22 CDT by Nneka Burkett Please click the below link to view image of tracing.
== END 2024-12-06 00:34 | disposition home or self-care (01) ==
LOC: EDH 19:25
DX: K29.70 Gastritis, unspecified, without bleeding (principal); R03.0 Elevated blood-pressure reading, without diagnosis of hypertension; R00.2 Palpitations; E78.00 Pure hypercholesterolemia, unspecified; J45.909 Unspecified asthma, uncomplicated; Z79.899 Other long term (current) drug therapy; Z88.6 Allergy status to analgesic agent; Z98.890 Other specified postprocedural states
CPT/HCPCS: 99284; 96360; 71045; 84443; 82550; 84484 ×2; 80048; 83880; 80305; 83690; 85025; 36415; 93005 ×2; 81003; J7040

== ENCOUNTER 2025-03-05 20:14 | Emergency (ER) | payer BC ==
[~2025-03-05] VITALS: Ht 157.5 cm; Wt 68.0 kg
[~2025-03-05 20:14] MED LIST changes: +FAMO20TA8 PO
[2025-03-05 20:58] LABS: IMMATURE GRANULOCYTE ABSOLUTE 0.06 K/uL (0-1); NUCLEATED RED BLOOD CELLS 0.0 % (0.0-0.19); PLATELET COUNT (AUTO) 239 K/uL (130-400); RED BLOOD CELL COUNT(AUTO) 4.41 MIL/uL (4.00-5.50); RED CELL DISTRIBUTION WIDTH 12.5 % (11.0-15.5); WHITE BLOOD COUNT (AUTO) 10.0 K/uL (4.8-10.8)
[2025-03-05 21:04] LABS: APPEARANCE,URINE CLOUDY (CLEAR); GLUCOSE, URINE (UA) NEGATIVE (NEGATIVE); LEUKOCYTE ESTERASE ,URINE NEGATIVE Leu/uL (NEGATIVE); NITRATE,URINE NEGATIVE (NEGATIVE); OCCULT BLOOD,URINE NEGATIVE (NEGATIVE)
[2025-03-05 21:06] LABS: ADD UA MICROSCOPIC YES
[2025-03-05 21:08] LABS: HCG,QUALITATIVE URINE NEGATIVE (NEGATIVE)
[2025-03-05 21:08] LABS: CREATININE 0.7 mg/dL (0.5-1.0); GLOMERULAR FILTR. RATE CALC 119.0 mL/min (>90); GLUCOSE,RANDOM 97.0 mg/dL (70-105); SODIUM SERUM 141.0 mmol/L (136-145); UREA NITROGEN, BLOOD 14.0 mg/dL (7-18)
[2025-03-05 21:22] LABS: COVID19 (SARS ANTIGEN RAPID) PRESUMPTIVE NEGATIVE (NEGATIVE)
[2025-03-05 21:23] LABS: INFLUENZA TYPE A Negative For Type A (NEGATIVE); INFLUENZA TYPE B Negative For Type B (NEGATIVE)
[2025-03-05 21:39] LABS: OTHER CASTS, URINE 1 /LPF (None Seen); SQUAMOUS EPITHELIAL CELL,UR FEW /HPF (0-2)
[2025-03-05 21:41] VITALS: PULSE 89; RESP 20
--- NOTE | 2025-03-05 22:29 | ERN ---
ED Note History of Present Illness Stated Complaint: C/O UPPER BACK PAIN WITH SOB Chief Complaint: Back Pain-No Injury Time Seen by MD: 20:15 Time Seen by Midlevel: 20:15 Dictation: The patient is a 29-year-old female with a history of asthma, cholecystectomy, who presents to the emergency department with complaints of two days of wheezing, shortness of breath, upper back pain. Patient reports she has been using her inhaler with mild improvement. Patient denies any cough or runny nose. Patient also reported left mid abdominal pain and constipation for two days. Patient denies any fevers, nausea or vomiting. Allergies: Coded Allergies: No Known Drug Allergies (Verified Allergy, Unknown, 09/15/14) aspirin (Unverified Allergy, Unknown, HIVES, 12/24/20) Home Meds Active Scripts Famotidine (Famotidine) 20 Mg Tablet, 1 TAB PO BID for 30 Days, #60 TAB 0 Refills Prov:JEANNETTE ROMAN FABRICATION MANAGER 12/05/24 Dicyclomine HCl (Bentyl) 20 Mg Tab, 1 TAB PO TID for irritable bowel symptoms for 10 Days, #30 TAB 0 Refills Prov:LUCY ORELLANA DO 05/24/24 Loratadine (Loratadine) 10 Mg Tablet, 1 TAB PO DAILY for allergy symptoms for 30 Days, #30 TAB 0 Refills Prov:CHRISTOPHER BANUELOS MD 05/05/24 Fluticasone Propionate (Flonase Nasal [place]) 50 Mcg/Actuation [place], 2 SPRAY NS DAILY, #16 GM 0 Refills Prov:CHRISTOPHER BANUELOS MD 05/05/24 Amoxicillin/Potassium Clav (Amox Tr-K Clv 875-125 mg Tab) 875 Mg-125 Mg Tablet, 1 TAB PO BID for 10 Days, #20 TAB 0 Refills Prov:CHRISTOPHER BANUELOS MD 05/05/24 Amoxicillin/Potassium Clav (Amox Tr-K Clv 875-125 mg Tab) 875 Mg-125 Mg Tablet, 1 EACH PO BID for 7 Days, #14 TAB 0 Refills Prov:MOHIT BUSBY 04/05/24 Hydrocortisone (Hydrocortisone 1% 28.35GM) 1 % Crm, 2 GM TP BID for 7 Days, #28.3 G Prov:MOHIT BUSBY 04/05/24 Mupirocin Calcium (Mupirocin) 2 % Cream..g., 1 GM TP BID for 7 Days, #15 GM Prov:MOHIT BUSBY 04/05/24 Acetaminophen (Tylenol) 325 Mg Tablet, 650 MG PO Q6H PRN for PAIN LEVEL 1 TO 3, #30 TAB Prov:PAO BREWSTER 02/27/24 Reported Medications Albuterol Sulfate (Ventolin Hfa) 90 Mcg Hfa.aer.ad, 2 PUFF IH Q4HPRN PRN for SHORTNESS OF BREATH 12/13/23 Past Medical History Past Medical History: Asthma Surgical History: Cholecystectomy, Surgical History Other: 3 C SECTIONS, COSMETIC SURGERY 01/30, HERNIA Social History: Negative, Lives with family LMP: Jan 29, 2025 : 4 Para: 4 Aborts: 0 RN Note Reviewed/Agreed w/PFSH: Yes Review of System Dictation Constitutional: Negative for fever,chills, and weight loss Eyes: Negative for injury, pain,redness, and discharge ENT: Negative for injury,pain or swelling Cardiovascular: Negative for chest pain, palpitations, and edema Respiratory: Negative for cough, positive for shortness of breath, wheezing Abdomen/GI: Negative for nausea, vomiting, diarrhea, positive for abdominal pain, constipation Back: Negative for injury and pain : Negative for injury, bleeding and discharge MS/Extremity: Negative for injury and deformity Skin: Negative for rash, and discoloration Neuro: Negative for headache, weakness, numbness, tingling, and seizure Psych: Negative for suicide ideation, homicidal ideation, and hallucinations Initial Vital Sign VS Vital Signs Date Time Temp Pulse Resp B/P (MAP) Pulse Ox O2 Delivery O2 Flow Rate FiO2 03/05/25 20:15 98.2 94 20 130/78 98 Room Air 03/05/25 20:24 0 21 Physical Exam Dictation Vital Signs reviewed General Appearance: Alert, oriented x 3, no acute distress, well developed, nourished. Head and Face: non-traumatic. Eyes: PERRL, pink conjunctivas, eyelid no trauma, anterior chamber with arcus senilis. Ears: Pinnas intact and no signs of trauma or erythema ear canals clear and no discharge TM no erythema Nose: No discharge, no bleeding. Oropharynx: Mouth normal, tongue pink. pharynx clear,no erythema, tonsils no exudates, no abscesses noted, mucous membrane moist Neck: Supple, non-tender, no thyromegaly, no masses, no JVD, no bruits Breast:Deferred Chest:No tenderness, no crepitus, no paradoxical movement, no retractions Lungs:Clear, well-ventilated, symmetric, no rales, no wheezing, no rhonchi, no stridor, good breath sounds bilaterally Heart: Regular rate, regular rhythm, no murmur, no gallops Vascular: no peripheral edema, Abdomen: Soft, positive bowel sounds, nondistended, no guarding, nontender, no rebound, no masses no hepatomegaly, no splenomegaly, no Nguyen's sign, no hernias. Rectal: Deferred Genital: Deferred Neurological: Normal speech, motor function intact, sensory function intact Musculoskeletal: Neck nontender, full range of motion, back nontender, full range of motion, Extremities: nontender, full range of motion Skin: Color pink, dry, no turgor, no rash, no lacerations, no abrasions, no contusions. Lymphatic: Deferred Results (Laboratory/Radiology) Laboratory/Radiology Laboratory Tests Test 03/05/25 20:52 03/05/25 20:55 White Blood Count 10.0 K/uL (4.8-10.8) Red Blood Count 4.41 MIL/uL (4.00-5.50) Hemoglobin 13.1 g/dL (12.0-16.0) Hematocrit 38.3 % (36-48) Mean Corpuscular Volume 86.8 fL (79-99) Mean Corpuscular Hemoglobin 29.7 pg (27.0-33.0) Mean Corpuscular Hemoglobin Concent 34.2 g/dL (32.0-36.0) Red Cell Distribution Width 12.5 % (11.0-15.5) Platelet Count 239 K/uL (130-400) Mean Platelet Volume 10.8 fL (7.5-10.5) H Immature Granulocyte % (Auto) 0.6 % (0-1) Neutrophils (%) (Auto) 63.3 % (40.0-77.0) Lymphocytes (%) (Auto) 26.4 % (21.0-51.0) Monocytes (%) (Auto) 6.3 % (3.0-13.0) Eosinophils (%) (Auto) 3.0 % (0.0-8.0) Basophils (%) (Auto) 0.4 % (0.0-5.0) Neutrophils # (Auto) 6.3 K/uL (1.8-7.7) Lymphocytes # (Auto) 2.6 K/uL (1.0-4.8) Monocytes # (Auto) 0.6 K/uL (0.1-1.0) Eosinophils # (Auto) 0.30 K/uL (0.00-0.70) Basophils # (Auto) 0.04 K/uL (0.00-0.20) Absolute Immature Granulocyte (auto 0.06 K/uL (0-1) Nucleated Red Blood Cells 0.0 % (0.0-0.19) Sodium Level 141 mmol/L (136-145) Potassium Level 3.5 mmol/L (3.5-5.1) Chloride Level 105 mmol/L (101-111) Carbon Dioxide Level 29 mmol/L (21-32) Blood Urea Nitrogen 14 mg/dL (7-18) Creatinine 0.7 mg/dL (0.5-1.0) Glomerular Filtration Rate Calc 119 mL/min (>90) Random Glucose 97 mg/dL (70-105) Total Calcium 8.8 mg/dL (8.5-10.1) Urine Color LIGHT-YELLOW (YELLOW) Urine Appearance CLOUDY (CLEAR) H Urine pH 5.5 (5.0-8.0) Urine Specific [place] 1.022 (1.001-1.031) Urine Protein NEGATIVE mg/dL (NEGATIVE) Urine Glucose (UA) NEGATIVE mg/dL (NEGATIVE) Urine Ketones NEGATIVE mg/dL (NEGATIVE) Urine Occult Blood NEGATIVE (NEGATIVE) Urine Nitrate NEGATIVE (NEGATIVE) Urine Bilirubin NEGATIVE mg/dL (NEGATIVE) Urine Urobilinogen 0.2 mg/dL (0.2-1.0) Urine Leukocyte Esterase NEGATIVE Lilli/uL Urine RBC 2-5 /HPF (0-1) H Urine WBC 11-25 /HPF (0-1) H Urine Squamous Epithelial Cells FEW /HPF (0-2) Urine Bacteria RARE /HPF (None Seen) Urine Other Casts 1 /LPF (None Seen) Urine HCG, Qualitative NEGATIVE (NEGATIVE) Influenza Type A Antigen Negative For Type A Influenza Type B Antigen Negative For Type B SARS-CoV-2 Antigen (Rapid) PRESUMPTIVE NEGATIVE REASON: constipation ORDERING PHYSICIAN: ANA JUAN INFRASTRUCTURE DEVELOPER PROCEDURE: ABD 1VW - ABD 1VW EXAM: CR Abdomen, 2 View. CLINICAL HISTORY: constipation COMPARISON: None provided. FINDINGS: BOWEL: The bowel gas pattern is within normal limits. Abundant colonic fecal matter may reflect constipation. PERITONEUM/SOFT TISSUES: No free air evident. No pathologic appearing calcification. BONES: No aggressive appearing osseous lesion seen. Prior cholecystectomy. IMPRESSION: The bowel gas pattern is within normal limits. Abundant colonic fecal matter may reflect constipation. /[place] REASON: sob ORDERING PHYSICIAN: ANA JUAN INFRASTRUCTURE DEVELOPER PROCEDURE: CXR1VW - CHEST 1VW EXAM: CR Chest, 1 View. CLINICAL HISTORY: sob COMPARISON: None provided. FINDINGS: LUNGS: The lungs show no infiltrate or other acute finding. PLEURAL SPACES: No pleural effusion or pneumothorax. MEDIASTINUM: Cardiac size and mediastinal contours within normal limits. BONES: No aggressive appearing osseous lesion seen. IMPRESSION: No acute cardiopulmonary pathology is evident. Labs Reviewed?: Yes ED Course ED Course Orders Procedure Category Date Status Time Cbc With Differential LAB 03/05/25 Complete 20:38 ,Urine Test LAB 03/05/25 Complete 20:38 Urinalysis Profile LAB 03/05/25 Complete 20:38 Basic Metabolic Panel LAB 03/05/25 Complete 20:38 Chest 1vw RAD 03/05/25 Resulted 20:38 Abd 1vw RAD 03/05/25 Resulted 20:38 Covid19 (Sars Antigen LAB 03/05/25 Complete Rapid) 20:38 Influenza Type A & B, LAB 03/05/25 Complete Rapid 20:38 Ipratropium/Albuterol PHA 03/05/25 Complete Neb (Duoneb) 21:00 Methylprednisolone PHA 03/05/25 Complete Succ 125mg (Solu-Medr 21:30 Culture Urine MYLENE 03/05/25 In Process 21:41 Current Medications Medications (Trade) Dose Ordered Sig/[place] Route PRN Reason Start Time Stop Time Status Last Admin Dose Admin Albuterol (DUOneb) 1 UDVIAL ONCE ONCE IH 03/05/25 21:00 03/05/25 21:01 DC 03/05/25 21:40 Methylprednisolone Sodium Succinate (Solu-medROL 125MG) 125 mg ONCE ONCE IVP 03/05/25 21:30 03/05/25 21:31 DC 03/05/25 21:23 Vital Signs Date Time Temp Pulse Resp B/P (MAP) Pulse Ox O2 Delivery O2 Flow Rate FiO2 03/05/25 21:48 98.2 86 16 130/72 98 Room Air* 0 21 03/05/25 21:41 89 20 03/05/25 20:24 98.2 90 16 128/75 98 Room Air* 0 21 03/05/25 20:15 98.2 94 20 130/78 98 Room Air Medical Decision Making MDM The patient is a 29-year-old female with a history of asthma, cholecystectomy, who presents to the emergency department with complaints of two days of wheezing, shortness of breath, upper back pain. Patient reports she has been using her inhaler with mild improvement. Patient denies any cough or runny nose. Patient also reported left mid abdominal pain and constipation for two days. Patient denies any fevers, nausea or vomiting. CBC showed no leukocytosis, no anemia, chemistry showed no electrolyte imbalance, serology negative, urinalysis unremarkable. Chest x-ray showed no acute pathology. Abdominal x-ray consistent with constipation. On physical exam patient is in no acute distress, nonlabored respirations, clear lung sounds. Nontender abdomen to palpation. Patient nontoxic appearance, stable vital signs. Patient will be discharged to follow up with PCP. Differential diagnosis: Asthma exacerbation, pneumonia, upper respiratory infection, constipation Need for hospitalization: Patient does not meet criteria for hospitalization. There are no social concerns with this patient. DX & DISP Disposition: Discharge Departure Impression: Primary Impression: Asthma exacerbation Additional Impression: Constipation Condition: Stable Scripts Lactulose (Lactulose) 10 Gram/15 Ml Solution 30 ML PO DAILY for constipation, #500 ML 0 Refills Prov: ANA JUAN INFRASTRUCTURE DEVELOPER 03/05/25 Albuterol Sulfate (Ventolin Hfa/Proventil Hfa/Proair Hfa) 90 Mcg Puff 1-2 PUFF IH Q4H PRN for SHORTNESS OF BREATH for 5 Days, #1 INH 0 Refills PHARMACY TO DISPENSE 1 INHALER FOR USE Prov: ANA JUAN INFRASTRUCTURE DEVELOPER 03/05/25 Methylprednisolone (Medrol) 4 Mg Tab.ds.pk 4 MG PO AD for 6 Days, #1 PACK Day 1: Take 2 tablets before breakfast,1 tablet after lunch and supper, and 2 tablets at bedtime. Day 2: Take1 tablet before breakfast,1 tablet after lunch,1 tablet after supper, and 2 tablets at bedtime. Day 3: Take 1 tablet before breakfast, 1 tablet after lunch, 1 tablet after supper, and 1 tablet at bedtime. Day 4: Take 1 tablet before breakfast, 1 tablet after lunch, and 1 tablet at bedtime. Day 5: Take1 tablet before breakfast and 1 tablet at bedtime. Day 6: Take 1 tablet before breakfast. Prov: YESSICAANA MORRISON 03/05/25 Additional Instructions: Your labs were unremarkable. Your x-ray of your chest showed no pneumonia, your x-ray of your abdomen showed constipation. Please take your medications as prescribed. Drink plenty of fluids at home and increase your fiber intake. If anything worsens please return to ER. FOLLOW-UP WITH PRIMARY CARE PROVIDER IN 1 TO 2 DAYS. TAKE MEDICATIONS DIRECTED HERE IN THE EMERGENCY ROOM. OKAY TO CONTINUE HOME MEDICATIONS UNLESS OTHERWISE DISCUSSED DURING YOUR VISIT IN THE EMERGENCY ROOM TODAY. RETURN TO YOUR NEAREST EMERGENCY ROOM IF SYMPTOMS WORSEN OR IF THERE IS NO IMPROVEMENT. CALL 911 IF YOU NEED IMMEDIATE ASSISTANCE. TAKE TYLENOL [id number] NEEDED AND IF NO CONTRAINDICATIONS ARE PRESENT. INCREASE ORAL HYDRATION. A WOUND CULTURE OR URINE CULTURE WAS ORDERED HERE IN THE EMERGENCY ROOM DEPARTMENT PLEASE FOLLOW-UP WITH PRIMARY CARE PROVIDER AND ADVISE THEM TO GET REPEAT PORTS FROM OUR FACILITY. IF YOU HAD ANY BRIONNA WRAP/SPLINTS THAT WERE APPLIED HERE, PLEASE DO NOT REMOVE THEM UNTIL YOU SEE YOUR PRIMARY CARE OR SPECIALTY. Referrals: SELENE EDWARDS PA-C (PCP) Time of Disposition: 22:45 I have reviewed the case, and I agree with, Diagnosis and Plan ANA JUAN Mar 05, 2025 22:29
--- NOTE | 2025-03-05 22:40 | HMCIMG ---
EXAM: CR Chest, 1 View. CLINICAL HISTORY: sob COMPARISON: None provided. FINDINGS: LUNGS: The lungs show no infiltrate or other acute finding. PLEURAL SPACES: No pleural effusion or pneumothorax. MEDIASTINUM: Cardiac size and mediastinal contours within normal limits. BONES: No aggressive appearing osseous lesion seen. IMPRESSION: No acute cardiopulmonary pathology is evident. /[place]
--- NOTE | 2025-03-05 22:40 | HMCIMG ---
EXAM: CR Abdomen, 2 View. CLINICAL HISTORY: constipation COMPARISON: None provided. FINDINGS: BOWEL: The bowel gas pattern is within normal limits. Abundant colonic fecal matter may reflect constipation. PERITONEUM/SOFT TISSUES: No free air evident. No pathologic appearing calcification. BONES: No aggressive appearing osseous lesion seen. Prior cholecystectomy. IMPRESSION: The bowel gas pattern is within normal limits. Abundant colonic fecal matter may reflect constipation. /[place]
[2025-03-05] MEDS ORDERED: ALBUHFA IH (22:47)
[2025-03-05] MEDS ORDERED: LACT-441 PO (22:47)
[2025-03-05] MEDS ORDERED: METH4TAB3 PO (22:47)
[2025-03-05 22:48] VITALS: BP 130/72; PULSE 86; RESP 16; TEMP 98.2; O2SAT 98
== END 2025-03-05 22:56 | disposition home or self-care (01) ==
LOC: EDH 20:14
DX: J45.901 Unspecified asthma with (acute) exacerbation (principal); K59.00 Constipation, unspecified; Z88.6 Allergy status to analgesic agent; Z90.49 Acquired absence of other specified parts of digestive tract; Z20.822 Contact with and (suspected) exposure to COVID-19
CPT/HCPCS: 99284; 96374; 71045; 87426; 80048; 85025; 87086; 87804 ×2; 81001; 81025; 36415; 74018; 94640; J2919

== ENCOUNTER 2025-04-25 17:31 | Emergency (ER) | payer BC ==
[~2025-04-25] VITALS: Ht 152.4 cm; Wt 70.3 kg
[~2025-04-25 17:31] MED LIST changes: +ALBUHFA IH; +LACT-441 PO; +METH4TAB3 PO
--- NOTE | 2025-04-25 17:58 | ERN ---
ED Note History of Present Illness Stated Complaint: RT KNEE INJURY Chief Complaint: Knee Injury/Swelling Time Seen by MD: 17:43 Time Seen by Midlevel: 17:44 Dictation: Ms. Hernandez is a 29 year old female with history of asthma and psoriasis who presented to the Emergency Department this evening for evaluation of knee pain. She states that she was walking past a pole and struck her right lateral knee on it. She is reporting pain to the right knee which radiates down the leg. She has minimal swelling. She currently has as this plaques to the lower leg. She has good color, warmth, movement, and sensation to the right toes. Pedal pulses are palpable and capillary refill is brisk. She denies additional injury. She denies fever, chills, shortness of breath, cough, chest pain, palpitations, edema, abdominal pain, nausea, vomiting, hematemesis, constipation, diarrhea, melena, hematochezia, dysuria, headache, dizziness, or focal weakness/paresthesia Allergies: Coded Allergies: No Known Drug Allergies (Verified Allergy, Unknown, 09/15/14) aspirin (Unverified Allergy, Unknown, HIVES, 12/24/20) Home Meds Active Scripts Lactulose (Lactulose) 10 Gram/15 Ml Solution, 30 ML PO DAILY for constipation, #500 ML 0 Refills Prov:ANA JUAN 03/05/25 Albuterol Sulfate (Ventolin Hfa/Proventil Hfa/Proair Hfa) 90 Mcg Puff, 1-2 PUFF IH Q4H PRN for SHORTNESS OF BREATH for 5 Days, #1 INH 0 Refills PHARMACY TO DISPENSE 1 INHALER FOR USE Prov:ANA JUAN 03/05/25 Methylprednisolone (Medrol) 4 Mg Tab.ds.pk, 4 MG PO AD for 6 Days, #1 PACK Day 1: Take 2 tablets before breakfast,1 tablet after lunch and supper, and 2 tablets at bedtime. Day 2: Take1 tablet before breakfast,1 tablet after lunch,1 tablet after supper, and 2 tablets at bedtime. Day 3: Take 1 tablet before breakfast, 1 tablet after lunch, 1 tablet after supper, and 1 tablet at bedtime. Day 4: Take 1 tablet before breakfast, 1 tablet after lunch, and 1 tablet at bedtime. Day 5: Take1 tablet before breakfast and 1 tablet at bedtime. Day 6: Take 1 tablet before breakfast. Prov:ANA JUAN [employer] QUALITY ENGINEER 03/05/25 Famotidine (Famotidine) 20 Mg Tablet, 1 TAB PO BID for 30 Days, #60 TAB 0 Refil ls Prov:JEANNETTE ROMAN Jose L [employer] OPERATOR 12/05/24 Dicyclomine HCl (Bentyl) 20 Mg Tab, 1 TAB PO TID for irritable bowel symptoms for 10 Days, #30 TAB 0 Refills Prov:LUCY ORELLANA DO 05/24/24 Loratadine (Loratadine) 10 Mg Tablet, 1 TAB PO DAILY for allergy symptoms for 30 Days, #30 TAB 0 Refills Prov:CHRISTOPHER BANUELOS MD 05/05/24 Fluticasone Propionate (Flonase Nasal [place]) 50 Mcg/Actuation [place], 2 SPRAY NS DAILY, #16 GM 0 Refills Prov:CHRISTOPHER BANUELOS MD 05/05/24 Amoxicillin/Potassium Clav (Amox Tr-K Clv 875-125 mg Tab) 875 Mg-125 Mg Tablet, 1 TAB PO BID for 10 Days, #20 TAB 0 Refills Prov:CHRISTOPHER BANUELOS MD 05/05/24 Amoxicillin/Potassium Clav (Amox Tr-K Clv 875-125 mg Tab) 875 Mg-125 Mg Tablet, 1 EACH PO BID for 7 Days, #14 TAB 0 Refills Prov:MOHIT BUSBY 04/05/24 Hydrocortisone (Hydrocortisone 1% 28.35GM) 1 % Crm, 2 GM TP BID for 7 Days, #28.3 G Prov:MOHIT BUSBY 04/05/24 Mupirocin Calcium (Mupirocin) 2 % Cream..g., 1 GM TP BID for 7 Days, #15 GM Prov:MOHIT BUSBY 04/05/24 Acetaminophen (Tylenol) 325 Mg Tablet, 650 MG PO Q6H PRN for PAIN LEVEL 1 TO 3, #30 TAB Prov:PAO BREWSTER 02/27/24 Reported Medications Albuterol Sulfate (Ventolin Hfa) 90 Mcg Hfa.aer.ad, 2 PUFF IH Q4HPRN PRN for SHORTNESS OF BREATH 12/13/23 Past Medical History Past Medical History: Asthma, Other Additional Past Medical Hx: PSORIASIS Surgical History: Cholecystectomy, Surgical History Other: 3 C SECTIONS, COSMETIC SURGERY 01/30, HERNIA Social History: Negative, Lives with family : 4 Para: 4 Aborts: 0 RN Note Reviewed/Agreed w/PFSH: Yes Review of System Dictation REVIEW OF SYSTEMS: CONSTITUTIONAL: Patient denies fevers, chills, sweats and weight changes. EYES: Patient denies any visual symptoms. EARS, NOSE, AND THROAT: No difficulties with hearing. No symptoms of rhinitis or sore throat. CARDIOVASCULAR: Patient denies chest pains, palpitations, orthopnea and paroxysmal nocturnal dyspnea. RESPIRATORY: No dyspnea on exertion, no wheezing or cough. GI: No nausea, vomiting, diarrhea, constipation, abdominal pain, hematochezia or melena. : No urinary hesitancy or dribbling. No nocturia or urinary frequency. No abnormal urethral discharge. MUSCULOSKELETAL: Reports pain and swelling to right lateral knee with pain ra diating down to ankle. She states she took a dose of ibuprofen at home with minimal. Improvement of pain. Rates pain 9/10. She states she has pain with ambulation and feels wobbly. NEUROLOGIC: No chronic headaches, no seizures. Patient denies numbness, tingling or weakness. PSYCHIATRIC: Patient denies problems with mood disturbance. No problems with anxiety. ENDOCRINE: No excessive urination or excessive thirst. DERMATOLOGIC: History psoriasis. Initial Vital Sign VS Vital Signs Date Time Temp Pulse Resp B/P (MAP) Pulse Ox O2 Delivery O2 Flow Rate FiO2 04/25/25 17:32 98.2 88 18 129/76 97 Room Air 04/25/25 17:55 0 21 Physical Exam Dictation Vital signs: Reviewed. Afebrile. Constitutional: No acute distress. Non-toxic appearing. Head/Face: Normocephalic, atraumatic. Eyes: Periorbital areas with no swelling, redness, or edema. Lids and lashes are normal. Conjunctival injection is absent. Sclera anicteric. Pupils equal, round, reactive to light. ENT: Pinnas intact and no signs of trauma or erythema. Ear canals clear and no discharge. TMs no erythema. No nasal discharge or bleeding noted. Oropharynx with no exudate, redness, swelling, masses, exudates, or evidence of obstruction. Uvula midline. Mucous membranes moist. Neck: Trachea midline, no masses palpated, and no cervical lymphadenopathy. No swelling. Supple, full range of motion. Chest/Axilla: No tenderness, no crepitus, no paradoxical movement, no retrac tions. Cardiovascular: Regular rate, regular rhythm, no murmur, no gallops. Symmetric pulses. No peripheral edema. Respiratory: Respirations even and unlabored. Lung sounds clear; no wheezes, rales or rhonchi. Room air SpO2 97% Gastrointestinal: Inspection is normal. No distention is appreciated. Bowel sounds are normal. No mass or organomegaly . There is no tenderness. No rebound. No rigidity. No voluntary or involuntary guarding. No Nguyen's sign. Neurological: Normal speech, gross motor function intact, gross sensory function intact. No focal weakness/Paresthesia. Musculoskeletal/Extremities: All extremities have full range of motion. There is tenderness upon palpation of right lateral knee. There is trace edema. She has good color, warmth, movement, and sensation to right toes. Pedal pulses are palpable and capillary refill is brisk. Integumentary: Intact. Skin is normal color, warm and dry. Cap refill less than 2 seconds. She has psoriasis plaques to all extremities; with erythema and irritation. Results (Laboratory/Radiology) Laboratory/Radiology Laboratory Tests Test 04/25/25 18:20 Urine Color LIGHT-YELLOW (YELLOW) Urine Appearance CLOUDY (CLEAR) H Urine pH 6.5 (5.0-8.0) Urine Specific [place] 1.025 (1.001-1.031) Urine Protein NEGATIVE mg/dL (NEGATIVE) Urine Glucose (UA) NEGATIVE mg/dL (NEGATIVE) Urine Ketones NEGATIVE mg/dL (NEGATIVE) Urine Occult Blood NEGATIVE (NEGATIVE) Urine Nitrate NEGATIVE (NEGATIVE) Urine Bilirubin NEGATIVE mg/dL (NEGATIVE) Urine Urobilinogen 0.2 mg/dL (0.2-1.0) Urine Leukocyte Esterase 25 Lilli/uL (NEGATIVE) H Urine RBC 2-5 /HPF (0-1) H Urine WBC 6-10 /HPF (0-1) H Urine Squamous Epithelial Cells FEW /HPF (0-2) Urine Bacteria RARE /HPF (None Seen) Urine Other Casts 1 /LPF (None Seen) Urine HCG, Qualitative NEGATIVE (NEGATIVE) X-RAY Comment: . The right knee with no evidence of acute fracture or dislocation. Joint spaces are preserved. Soft tissues are unremarkable. No acute osseous abnormality identified as interpreted by myself ED Course ED Course Orders Procedure Category Date Status Time ,Urine Test LAB 04/25/25 Complete 17:46 Apply Ice Pack To: CPOE 04/25/25 Transmitted (Er) 17:46 Knee 3vws Rt RAD 04/25/25 Resulted 17:46 Acetaminophen With PHA 04/25/25 Complete Codeine (Tylenol-Code 18:00 Knee Immobilizer SALVADOR 04/25/25 In Process 18:33 Urinalysis Profile LAB 04/25/25 Complete 18:38 Culture Urine MYLENE 04/25/25 Logged 19:22 Current Medications Medications (Trade) Dose Ordered Sig/Hollis Route PRN Reason Start Time Stop Time Status Last Admin Dose Admin Acetaminophen/ Codeine Phosphate (TYLenol-coDEINE TAB) 1 tab ONCE ONCE PO 04/25/25 18:00 04/25/25 18:01 DC 04/25/25 18:17 Vital Signs Date Time Temp Pulse Resp B/P (MAP) Pulse Ox O2 Delivery O2 Flow Rate FiO2 04/25/25 17:55 98.8 88 20 129/76 97 Room Air* 0 21 04/25/25 17:32 98.2 88 18 129/76 97 Room Air Uneventful ED course. Vital signs are stable. She received dose Tylenol No. 3 x1 for discomfort as well as cool therapy with ice pack. X-ray of the right knee unremarkable; no fracture or dislocation. Knee immobilizer was applied. She has good color, warmth, movement, and sensation to right toes and capillary refill is brisk. At time of discharge she mentions that she thinks she might have a UTI and wants it checked. UHCG negative. UA cloudy; + few bacteria, leukocyte esterase and UWBC 6-10. UCX pending. will send Rx for antibiotic Medical Decision Making MDM MDM: Differential diagnosis: Contusion of knee, knee dislocation, knee fracture Rationale: Tests considered and ordered secondary to shared decision making include: X-ray Previous outside records reviewed: Old ER visits. Risk of complication and/or morbidity or mortality of patient management: None Medications-Per medication reconciliation Need for hospitalization: Patient does not meet criteria for hospitalization. Need for emergency major/minor surgery: No There are no social concerns with this patient. Prescription drug management: OTC Tylenol or ibuprofen Prescriptions will include symptomatic care Patient's prior external medical records from other ER visits were reviewed by me as indicated. Prior testing and results from previous visits were reviewed. Prior tests were taken into account with medical decision making and resource utilization, independent historian/historians were used to obtain complete medical history. I independently interpreted the test that were performed, results were reviewed by me and considered findings on radiology if ordered. Medical management and examination interpretation discussions were had by me with other qualified healthcare professionals as indicated for the patient's care. DX & DISP Disposition: Discharge Departure Impression: Primary Impression: Right knee sprain Additional Impressions: Contusion of knee, right, UTI (urinary tract infection) Condition: Stable Scripts Nitrofurantoin Macrocrystal (Nitrofurantoin) 100 Mg Capsule 1 CAP PO BID for 7 Days, #14 CAP 0 Refills Prov: JEANNETTE ROMAN NP 04/25/25 Additional Instructions: You were evaluated in the emergency department today for right knee pain after an injury. Your knee x-ray was normal. There is no fracture or dislocation. Your symptoms are most consistent with a knee contusion and/or strain. At home you should apply an ice pack to your knee for 15-20 minutes at a time, three to 4 times a day for the next 48 hours to reduce pain and swelling. Keep your leg elevated when possible to help with swelling. Your provided with a knee immobilizer-use it as instructed for support and comfort, especially when walking. Rest the knee and avoid strenuous activity. You may return to work in two days, sooner if symptoms improve and using walk comfortably. Follow up with your primary care provider if pain persists beyond a few days or if symptoms worsened. Return to the ER if you experience increased pain, significant swelling, inability to bear weight, numbness, tingling or any new concerning symptoms. [place] urinary tract infection. Continue antibiotic nitrofurantoin twice daily for seven days; continue antibiotic until gone even if you are feeling fine. Rest. Drink plenty of fluids. Referrals: SELENE EDWARDS PA-C (PCP) Time of Disposition: 18:37 JEANNETTE ROMAN NP Apr 25, 2025 17:58
--- NOTE | 2025-04-25 18:00 | NUR ---
ICE PACK APPLIED TO AFFECTED RIGHT KNEE. PATIENT EDUCATED ON ICE PACK USE, PATIENT VERBALIZED UNDERSTANDING.
--- NOTE | 2025-04-25 18:34 | HMCIMG ---
EXAM: CR right Knee, 3 View. CLINICAL HISTORY: right knee injury COMPARISON: None provided. FINDINGS: BONES: No acute fracture or aggressive appearing osseous lesion. JOINTS: The joint spaces show no significant degenerative disease. There is no joint effusion appreciated. SOFT TISSUES: The soft tissues are unremarkable. IMPRESSION: No acute osseous pathology evident. /[place]
--- NOTE | 2025-04-25 19:10 | NUR ---
KNEE IMMOBILIZER APPLIED TO RIGHT KNEE. PATIENT EDUCATED ON KNEE IMMOBILIZER USE AND VERBALIZED UNDERSTANDING.
[2025-04-25 19:18] LABS: APPEARANCE,URINE CLOUDY (CLEAR); GLUCOSE, URINE (UA) NEGATIVE (NEGATIVE); LEUKOCYTE ESTERASE ,URINE 25 Leu/uL (NEGATIVE); NITRATE,URINE NEGATIVE (NEGATIVE); OCCULT BLOOD,URINE NEGATIVE (NEGATIVE)
[2025-04-25 19:21] LABS: ADD UA MICROSCOPIC YES
[2025-04-25 19:22] LABS: OTHER CASTS, URINE 1 /LPF (None Seen); SQUAMOUS EPITHELIAL CELL,UR FEW /HPF (0-2)
[2025-04-25] MEDS ORDERED: NITR100C PO (19:27)
[2025-04-25 19:29] VITALS: BP 125/72; PULSE 82; RESP 20; TEMP 98.8; O2SAT 98
== END 2025-04-25 19:37 | disposition home or self-care (01) ==
LOC: EDH 17:31
DX: S83.91XA Sprain of unspecified site of right knee, initial encounter (principal); S80.01XA Contusion of right knee, initial encounter; N39.0 Urinary tract infection, site not specified; J45.909 Unspecified asthma, uncomplicated; Z88.6 Allergy status to analgesic agent; Z90.49 Acquired absence of other specified parts of digestive tract; W22.8XXA Striking against or struck by other objects, initial encounter; Y93.01 Activity, walking, marching and hiking; Y92.89 Other specified places as the place of occurrence of the external cause; Y99.8 Other external cause status
CPT/HCPCS: 29505; 73562; 81001; 81025; 87086; 99283

== ENCOUNTER 2025-05-06 18:33 | Emergency (ER) | payer BC ==
[~2025-05-06 18:33] MED LIST changes: +NITR100C PO
[2025-05-06 19:17] LABS: IMMATURE GRANULOCYTE ABSOLUTE 0.07 K/uL (0-1); NUCLEATED RED BLOOD CELLS 0.0 % (0.0-0.19); PLATELET COUNT (AUTO) 254 K/uL (130-400); RED BLOOD CELL COUNT(AUTO) 4.91 MIL/uL (4.00-5.50); RED CELL DISTRIBUTION WIDTH 12.4 % (11.0-15.5); WHITE BLOOD COUNT (AUTO) 9.4 K/uL (4.8-10.8)
[2025-05-06 19:26] LABS: CREATININE 0.6 mg/dL (0.5-1.0); GLOMERULAR FILTR. RATE CALC 123.0 mL/min (>90); GLUCOSE,RANDOM 80.0 mg/dL (70-105); SODIUM SERUM 141.0 mmol/L (136-145); UREA NITROGEN, BLOOD 16.0 mg/dL (7-18)
--- NOTE | 2025-05-06 20:01 | HMCIMG ---
EXAM: CR Chest, 1 View. CLINICAL HISTORY: cp COMPARISON: None provided. FINDINGS: LUNGS: The lungs show no infiltrate or other acute finding. PLEURAL SPACES: No evidence of pleural effusion or pneumothorax. MEDIASTINUM: The cardiomediastinal silhouette is within normal limits. BONES: No aggressive appearing osseous lesion seen. IMPRESSION: Findings similar March 05, 2020 No acute cardiopulmonary pathology is evident. /[place]
--- NOTE | 2025-05-06 20:17 | ERN ---
ED Note History of Present Illness Stated Complaint: CP Chief Complaint: Chest Pain Time Seen by MD: 18:36 Time Seen by Midlevel: 18:40 Dictation: 29 Year old female with no significant past medical history coming in with complaining of chest pain onset just prior to arrival. Patient states she was cooking then went to go see her TV. Patient describes chest pain as pressure, states that she has has a squamous kind of incident in the past and was told it was GERD. Allergies: Coded Allergies: No Known Drug Allergies (Verified Allergy, Unknown, 09/15/14) aspirin (Unverified Allergy, Unknown, HIVES, 12/24/20) Home Meds Active Scripts Nitrofurantoin Macrocrystal (Nitrofurantoin) 100 Mg Capsule, 1 CAP PO BID for 7 Days, #14 CAP 0 Refills Prov:JEANNETTE ROMAN [facility] 04/25/25 Lactulose (Lactulose) 10 Gram/15 Ml Solution, 30 ML PO DAILY for constipation, #500 ML 0 Refills Prov:ANA JUAN [facility] 03/05/25 Albuterol Sulfate (Ventolin Hfa/Proventil Hfa/Proair Hfa) 90 Mcg Puff, 1-2 PUFF IH Q4H PRN for SHORTNESS OF BREATH for 5 Days, #1 INH 0 Refills PHARMACY TO DISPENSE 1 INHALER FOR USE Prov:ANA JUAN [facility] 03/05/25 Methylprednisolone (Medrol) 4 Mg Tab.ds.pk, 4 MG PO AD for 6 Days, #1 PACK Day 1: Take 2 tablets before breakfast,1 tablet after lunch and supper, and 2 tablets at bedtime. Day 2: Take1 tablet before breakfast,1 tablet after lunch,1 tablet after supper, and 2 tablets at bedtime. Day 3: Take 1 tablet before breakfast, 1 tablet after lunch, 1 tablet after supper, and 1 tablet at bedtime. Day 4: Take 1 tablet before breakfast, 1 tablet after lunch, and 1 tablet at bedtime. Day 5: Take1 tablet before breakfast and 1 tablet at bedtime. Day 6: Take 1 tablet before breakfast. Prov:ANA JUAN [facility] 03/05/25 Famotidine (Famotidine) 20 Mg Tablet, 1 TAB PO BID for 30 Days, #60 TAB 0 Refills Prov:JEANNETTE ROMAN [facility] 12/05/24 Dicyclomine HCl (Bentyl) 20 Mg Tab, 1 TAB PO TID for irritable bowel symptoms for 10 Days, #30 TAB 0 Refills Prov:LUCY ORELLANA DO 05/24/24 Loratadine (Loratadine) 10 Mg Tablet, 1 TAB PO DAILY for allergy symptoms for 30 Days, #30 TAB 0 Refills Prov:CHRISTOPHER BANUELOS MD 05/05/24 Fluticasone Propionate (Flonase Nasal [place]) 50 Mcg/Actuation [place], 2 SPRAY NS DAILY, #16 GM 0 Refills Prov:CHRISTOPHER BANUELOS MD 05/05/24 Amoxicillin/Potassium Clav (Amox Tr-K Clv 875-125 mg Tab) 875 Mg-125 Mg Tablet, 1 TAB PO BID for 10 Days, #20 TAB 0 Refills Prov:CHRISTOPHER BANUELOS MD 05/05/24 Amoxicillin/Potassium Clav (Amox Tr-K Clv 875-125 mg Tab) 875 Mg-125 Mg Tablet, 1 EACH PO BID for 7 Days, #14 TAB 0 Refills Prov:MOHIT BUSBY PAC 04/05/24 Hydrocortisone (Hydrocortisone 1% 28.35GM) 1 % Crm, 2 GM TP BID for 7 Days, #2 8.3 G Prov:MOHIT BUSBY PAC 04/05/24 Mupirocin Calcium (Mupirocin) 2 % Cream..g., 1 GM TP BID for 7 Days, #15 GM Prov:MOHIT BUSBY PAC 04/05/24 Acetaminophen (Tylenol) 325 Mg Tablet, 650 MG PO Q6H PRN for PAIN LEVEL 1 TO 3, #30 TAB Prov:PAO BREWSTER PAC 02/27/24 Reported Medications Albuterol Sulfate (Ventolin Hfa) 90 Mcg Hfa.aer.ad, 2 PUFF IH Q4HPRN PRN for SHORTNESS OF BREATH 12/13/23 Past Medical History Past Medical History: Asthma, Other Additional Past Medical Hx: PSORIASIS Surgical History: Cholecystectomy, Surgical History Other: 3 C SECTIONS, COSMETIC SURGERY 01/30, HERNIA Social History: Negative, Lives with family : 4 Para: 4 Aborts: 0 Review of System Dictation Constitutional: Negative for fever,chills, and weight loss Eyes: Negative for injury, pain,redness, and discharge ENT: Negative for injury,pain or swelling Cardiovascular: complaining of chest pain Respiratory: Negative for shortness of breath, cough, and wheezing, Abdomen/GI: Negative for abdominal pain, nausea, vomiting, diarrhea, and constipation Back: Negative for injury and pain : Negative for injury, bleeding and discharge MS/Extremity: Negative for injury and deformity Skin: Negative for rash, and discoloration Neuro: Negative for headache, weakness, numbness, tingling, and seizure Psych: Negative for suicide ideation, homicidal ideation, and hallucinations Review of Systems: was completed Physical Exam Dictation General: awake, alert, NAD Head/Face: Normocephalic, atraumatic Eyes: PERRL, EOMI, vision at baseline ENT: oral cavity clear, TMs clear, no signs of infection Neck: Trachea midline, supple, no nuchal rigidity Cardiovascular: RRR, normal S1/S2, No MRGs, no JVD Respiratory: CTAB, no respiratory distress, No rales or wheezes Abdomen: Soft, non-tender, non-distended, normal bowel sounds, no guarding or rebound. Skin: Warm, dry, normal turgor, no rash MS/Extremity: Pulses equal, no cyanosis, neurovascular intact, FROM Neuro: COAx4, GCS 15, strength 5/5, CN 2-12 intact, normal cerebellar exam, normal gait, Psych: Normal behavior, mood, and affect normal Results (Laboratory/Radiology) Laboratory/Radiology Laboratory Tests Test 05/06/25 19:10 White Blood Count 9.4 K/uL (4.8-10.8) Red Blood Count 4.91 MIL/uL (4.00-5.50) Hemoglobin 14.4 g/dL (12.0-16.0) Hematocrit 42.9 % (36-48) Mean Corpuscular Volume 87.4 fL (79-99) Mean Corpuscular Hemoglobin 29.3 pg (27.0-33.0) Mean Corpuscular Hemoglobin Concent 33.6 g/dL (32.0-36.0) Red Cell Distribution Width 12.4 % (11.0-15.5) Platelet Count 254 K/uL (130-400) Mean Platelet Volume 10.3 fL (7.5-10.5) Immature Granulocyte % (Auto) 0.7 % (0-1) Neutrophils (%) (Auto) 67.7 % (40.0-77.0) Lymphocytes (%) (Auto) 22.4 % (21.0-51.0) Monocytes (%) (Auto) 6.3 % (3.0-13.0) Eosinophils (%) (Auto) 2.4 % (0.0-8.0) Basophils (%) (Auto) 0.5 % (0.0-5.0) Neutrophils # (Auto) 6.4 K/uL (1.8-7.7) Lymphocytes # (Auto) 2.1 K/uL (1.0-4.8) Monocytes # (Auto) 0.6 K/uL (0.1-1.0) Eosinophils # (Auto) 0.23 K/uL (0.00-0.70) Basophils # (Auto) 0.05 K/uL (0.00-0.20) Absolute Immature Granulocyte (auto 0.07 K/uL (0-1) Nucleated Red Blood Cells 0.0 % (0.0-0.19) Sodium Level 141 mmol/L (136-145) Potassium Level 3.8 mmol/L (3.5-5.1) Chloride Level 103 mmol/L (101-111) Carbon Dioxide Level 28 mmol/L (21-32) Blood Urea Nitrogen 16 mg/dL (7-18) Creatinine 0.6 mg/dL (0.5-1.0) Glomerular Filtration Rate Calc 123 mL/min (>90) Random Glucose 80 mg/dL (70-105) Total Calcium 10.0 mg/dL (8.5-10.1) Troponin I High Sensitivity < 4 ng/L (4-50) L Lipase 28 U/L (16-77) Human Chorionic Gonadotropin, Quant 0 mIU/mL (0-5) Labs Reviewed?: Yes X-RAY Comment: [place] [id number] [address] IMAGING REPORT Signed PATIENT: DOROTHEA MARIEE MR#: [id number] : 1995 SEX: F AGE: 29 LOCATION: [facility] ORDER [id number] STATUS: REG REPORT#: [id number] SERVICE 35 REASON: cp ORDERING PHYSICIAN: BRIAN SCHWARTZ PROCEDURE: CXR1VW - CHEST 1VW EXAM: CR Chest, 1 View. CLINICAL HISTORY: cp COMPARISON: None provided. FINDINGS: LUNGS: The lungs show no infiltrate or other acute finding. PLEURAL SPACES: No evidence of pleural effusion or pneumothorax. MEDIASTINUM: The cardiomediastinal silhouette is within normal limits. BONES: No aggressive appearing osseous lesion seen. IMPRESSION: Findings similar March 05, 2020 No acute cardiopulmonary pathology is evident. /[place] DICTATED BY: CHELSEA JAY MD DATE: 05/06/252099 ELECTRONICALLY SIGNED BY: CHELSEA JAY MD DATE: 05/06/252099 ED Course ED Course Orders Procedure Category Date Status Time Cbc With Differential LAB 05/06/25 Complete 18:36 Basic Metabolic Panel LAB 05/06/25 Complete 18:36 Troponin I High LAB 05/06/25 Complete Sensitivity 18:36 Chest 1vw RAD 05/06/25 Resulted 18:36 12 Lead Ekg Tracing- EKG 05/06/25 Logged Technical 18:36 Hcg,Quantitative LAB 05/06/25 Complete 18:37 Lidocaine Hcl 2% PHA 05/06/25 Complete Viscous (Lidocaine Hcl 20:30 Mag/Alum/Simeth 30ml PHA 05/06/25 Complete (Maalox Plus 30ml) 20:30 Dicyclomine Hcl PHA 05/06/25 Complete (Bentyl 10mg/5ml 20:30 Lipase LAB 05/06/25 Complete 20:16 Current Medications Medications (Trade) Dose Ordered Sig/[place]oll[place] Route PRN Reason Start Time Stop Time Status Last Admin Dose Admin Al Hydroxide/Mg Hydroxide (MAALox PLUS 30ML) 30 ml ONCE ONCE PO 05/06/25 20:30 05/06/25 20:31 DC Dicyclomine HCl (Bentyl 10mg/5ml Syrup) 10 mg ONCE ONCE PO 05/06/25 20:30 05/06/25 20:31 DC Lidocaine HCl (Lidocaine HCl 2% Viscous) 10 ml ONCE ONCE PO 05/06/25 20:30 05/06/25 20:31 DC HEART Score Response (Comments) Value History: Low suspicion (0) 0 EKG: Normal 0 Age: < 45yrs (0) 0 Risk Factors: No known risk factors (0) 0 Initial Troponin: Normal limit (0) 0 Total 0 Medical Decision Making MDM MDM: 29 Year old female with no significant past medical history coming in with complaining of chest pain onset just prior to arrival. Patient states she was cooking then went to go see her TV. Patient describes chest pain as pressure, states that she has has a squamous kind of incident in the past and was told it was GERD. Cardiac workup is unremarkable. Chest x-ray shows no acute finding. It EKGs shows no ST elevation or reciprocal changes. Discussed with the patient this could be GERD however due to her multiple episodes she would benefit from seeing her PCP and determine if further evaluation by Cardiology we will be needed. Patient verbalized understanding, answered all questions. Differential diagnosis: ACS, GERD, costochondritis, pleurisy Rationale: Tests considered and ordered secondary to shared decision making include: Previous outside records reviewed: Old ER visits. Risk of complication and/or morbidity or mortality of patient management: None Medications-Per medication reconciliation Need for hospitalization: Patient does not meet criteria for hospitalization. Need for emergency major/minor surgery: No There are no social concerns with this patient. Prescription drug management Prescriptions will include symptomatic care Patient's prior external medical records from other ER visits were reviewed by me as indicated. Prior testing and results from previous visits were reviewed. Prior tests were taken into account with medical decision making and resource utilization, independent historian/historians were used to obtain complete medical history. I independently interpreted the test that were performed, results were reviewed by me and considered findings on radiology if ordered. Medical management and examination interpretation discussions were had by me with other qualified healthcare professionals as indicated for the patient's care. DX & DISP Disposition: Discharge Departure Impression: Primary Impression: Chest pain, non-cardiac Condition: Stable Additional Instructions: Follow up with your primary care provider if this is a continuing issue. return to the hospital if you have any worsening symptoms. Referrals: SELENE EDWARDS PA-C (PCP) Time of Disposition: 20:42 I have reviewed the case, and I agree with, Diagnosis and Plan BRIAN SCHWARTZ May 06, 2025 20:17
[2025-05-06] MEDS: LIDOCAINE HCL 2% VISCOUS 15 ML UDCUP PO ONE (20:56)
[2025-05-06] MEDS: DICYCLOMINE HCL 10 MG/5 ML ML PO ONE (20:56)
[2025-05-06] MEDS: MAG/ALUM/SIMETH 30 ML UDCUP PO ONE (20:56)
[2025-05-06 21:04] VITALS: BP 143/69; PULSE 89; RESP 20; TEMP 97.3; O2SAT 100
--- NOTE | 2025-05-07 06:31 | EKG ---
[facility] Test Date: 2025-05-06 Test Time: 18:35:37 Pat Name: DOROTHEA OCONNELLZA Department: ED Room: Gender: F [employer]: [id number] : 1995 Requested By: BRIAN SCHWARTZ Order Number: [id number] Reading MD: Oscar Hernandez Measurements Intervals [place] Rate: 93 P: 29 CA: 167 QRS: 37 QRSD: 95 T: -11 QT: 335 QTc: 416 Interpretive Statements Sinus rhythm Nonspecific T abnormalities, lateral leads Compared to ECG 12/05/2024 21:30:09 T-wave abnormality now present Electronically Signed On 05-07-2025 16:30:43 CDT by Oscar Hernandez Please click the below link to view image of tracing.
== END 2025-05-06 21:07 | disposition home or self-care (01) ==
LOC: EDH 18:33
DX: R07.89 Other chest pain (principal); J45.909 Unspecified asthma, uncomplicated; Z90.49 Acquired absence of other specified parts of digestive tract; Z98.890 Other specified postprocedural states; Z88.6 Allergy status to analgesic agent; Z79.899 Other long term (current) drug therapy
CPT/HCPCS: 36415; 71045; 80048; 83690; 84484; 84702; 85025; 93005; 99284

== ENCOUNTER 2025-06-04 00:22 | Emergency (ER) | payer BC ==
[~2025-06-04] VITALS: Ht 152.4 cm; Wt 68.0 kg
[2025-06-04 00:23] VITALS: BP 117/84; PULSE 71; RESP 20; TEMP 98.1
[2025-06-04 00:59] LABS: RAPID GROUP A STREP negative (NEGATIVE)
[2025-06-04 01:01] LABS: SARS-CoV-2, RNA, NAAT NEGATIVE SARS CoV-2 (NEGATIVE)
[2025-06-04 01:08] LABS: INFLUENZA TYPE A Negative For Type A (NEGATIVE); INFLUENZA TYPE B Negative For Type B (NEGATIVE)
--- NOTE | 2025-06-04 01:47 | ERN ---
ED Note History of Present Illness Stated Complaint: C/O SORE THROAT,COUGH, RT EAR PAIN Chief Complaint: Sore Throat Time Seen by MD: 00:23 Time Seen by Midlevel: 00:23 Dictation: The patient is a 29-year-old female with a history of asthma, , cholecystectomy who presents to the emergency department with complaints of sore throat, right ear pain, nonproductive cough onset a week ago. Patient denies any fevers. Allergies: Coded Allergies: No Known Drug Allergies (Verified Allergy, Unknown, 09/15/14) aspirin (Unverified Allergy, Unknown, HIVES, 12/24/20) Home Meds Active Scripts Nitrofurantoin Macrocrystal (Nitrofurantoin) 100 Mg Capsule, 1 CAP PO BID for 7 Days, #14 CAP 0 Refills Prov:JEANNETTE ROMAN [facility] 04/25/25 Lactulose (Lactulose) 10 Gram/15 Ml Solution, 30 ML PO DAILY for constipation, #500 ML 0 Refills Prov:ANA JUAN [facility] 03/05/25 Albuterol Sulfate (Ventolin Hfa/Proventil Hfa/Proair Hfa) 90 Mcg Puff, 1-2 PUFF IH Q4H PRN for SHORTNESS OF BREATH for 5 Days, #1 INH 0 Refills PHARMACY TO DISPENSE 1 INHALER FOR USE Prov:ANA JUAN [facility] 03/05/25 Methylprednisolone (Medrol) 4 Mg Tab.ds.pk, 4 MG PO AD for 6 Days, #1 PACK Day 1: Take 2 tablets before breakfast,1 tablet after lunch and supper, and 2 tablets at bedtime. Day 2: Take1 tablet before breakfast,1 tablet after lunch,1 tablet after supper, and 2 tablets at bedtime. Day 3: Take 1 tablet before breakfast, 1 tablet after lunch, 1 tablet after supper, and 1 tablet at bedtime. Day 4: Take 1 tablet before breakfast, 1 tablet after lunch, and 1 tablet at bedtime. Day 5: Take1 tablet before breakfast and 1 tablet at bedtime. Day 6: Take 1 tablet before breakfast. Prov:ANA JUAN [facility] 03/05/25 Famotidine (Famotidine) 20 Mg Tablet, 1 TAB PO BID for 30 Days, #60 TAB 0 Refills Prov:JEANNETTE ROMAN [employer] 12/05/24 Dicyclomine HCl (Bentyl) 20 Mg Tab, 1 TAB PO TID for irritable bowel symptoms for 10 Days, #30 TAB 0 Refills Prov:LUCY ORELLANA DO 05/24/24 Loratadine (Loratadine) 10 Mg Tablet, 1 TAB PO DAILY for allergy symptoms for 30 Days, #30 TAB 0 Refills Prov:CHRISTOPHER BANUELOS MD 05/05/24 Fluticasone Propionate (Flonase Nasal [place]) 50 Mcg/Actuation [place], 2 SPRAY NS DAILY, #16 GM 0 Refills Prov:CHRISTOPHER BANUELOS MD 05/05/24 Amoxicillin/Potassium Clav (Amox Tr-K Clv 875-125 mg Tab) 875 Mg-125 Mg Tablet, 1 TAB PO BID for 10 Days, #20 TAB 0 Refills Prov:CHRISTOPHER BANUELOS MD 05/05/24 Amoxicillin/Potassium Clav (Amox Tr-K Clv 875-125 mg Tab) 875 Mg-125 Mg Tablet, 1 EACH PO BID for 7 Days, #14 TAB 0 Refills Prov:MOHIT BUSBY PAC 04/05/24 Hydrocortisone (Hydrocortisone 1% 28.35GM) 1 % Crm, 2 GM TP BID for 7 Days, #28.3 G Prov:MOHIT BUSBY PAC 04/05/24 Mupirocin Calcium (Mupirocin) 2 % Cream..g., 1 GM TP BID for 7 Days, #15 GM Prov:MOHIT BUSBY PAC 04/05/24 Acetaminophen (Tylenol) 325 Mg Tablet, 650 MG PO Q6H PRN for PAIN LEVEL 1 TO 3, #30 TAB Prov:PAO BREWSTER PAC 02/27/24 Reported Medications Albuterol Sulfate (Ventolin Hfa) 90 Mcg Hfa.aer.ad, 2 PUFF IH Q4HPRN PRN for SHORTNESS OF BREATH 12/13/23 Past Medical History Past Medical History: Anxiety, Asthma, Depression Additional Past Medical Hx: PSORIASIS Surgical History: Cholecystectomy, Surgical History Other: 3 C SECTIONS, COSMETIC SURGERY 01/30, HERNIA Social History: Negative, Lives with family : 4 Para: 4 Aborts: 0 RN Note Reviewed/Agreed w/PFSH: Yes Review of System Dictation Constitutional: Negative for fever,chills, and weight loss Eyes: Negative for injury, pain,redness, and discharge ENT: Negative for injury,pain or swelling positive for right-sided ear pain positive for sore throat Cardiovascular: Negative for chest pain, palpitations, and edema Respiratory: Negative for shortness of breath,and wheezing, positive for cough Abdomen/GI: Negative for abdominal pain, nausea, vomiting, diarrhea, and constipation Back: Negative for injury and pain : Negative for injury, bleeding and discharge MS/Extremity: Negative for injury and deformity Skin: Negative for rash, and discoloration Neuro: Negative for headache, weakness, numbness, tingling, and seizure Psych: Negative for suicide ideation, homicidal ideation, and hallucinations Initial Vital Sign VS Vital Signs Date Time Temp Pulse Resp B/P (MAP) Pulse Ox O2 Delivery O2 Flow Rate FiO2 06/04/25 00:23 98.1 71 20 117/84 98 Room Air Physical Exam Dictation Vital Signs reviewed General Appearance: Alert, oriented x 3, no acute distress, well developed, nourished. Head and Face: non-traumatic. Eyes: PERRL, pink conjunctivas, eyelid no trauma, anterior chamber with arcus senilis. Ears: Pinnas intact and no signs of trauma or erythema ear canals clear and no discharge TM no erythema Nose: No discharge, no bleeding. Oropharynx: Mouth normal, tongue pink. pharynx clear,no erythema, tonsils no exudates, no abscesses noted, mucous membrane moist Neck: Supple, non-tender, no thyromegaly, no masses, no JVD, no bruits Breast:Deferred Chest:No tenderness, no crepitus, no paradoxical movement, no retractions Lungs:Clear, well-ventilated, symmetric, no rales, no wheezing, no rhonchi, no stridor, good breath sounds bilaterally Heart: Regular rate, regular rhythm, no murmur, no gallops Vascular: no peripheral edema, Abdomen: Soft, positive bowel sounds, nondistended, no guarding, nontender, no rebound, no masses no hepatomegaly, no splenomegaly, no Nguyen's sign, no hernias. Rectal: Deferred Genital: Deferred Neurological: Normal speech, motor function intact, sensory function intact Musculoskeletal: Neck nontender, full range of motion, back nontender, full range of motion, Extremities: nontender, full range of motion Skin: Color pink, dry, no turgor, no rash, no lacerations, no abrasions, no contusions. Lymphatic: Deferred Results (Laboratory/Radiology) Laboratory/Radiology Laboratory Tests Test 06/04/25 00:32 06/04/25 01:22 Influenza Type A Antigen Negative For Type A Influenza Type B Antigen Negative For Type B SARS-CoV-2, RNA, NAAT NEGATIVE SARS CoV-2 Group A Streptococcus Rapid negative (NEGATIVE) Urine HCG, Qualitative NEGATIVE (NEGATIVE) Labs Reviewed?: Yes ED Course ED Course Orders Procedure Category Date Status Time Covid Rna Naat LAB 06/04/25 Complete 00:31 Influenza Type A & B, LAB 06/04/25 Complete Rapid 00:31 Rapid (Group A Strep) LAB 06/04/25 Complete 00: Chest 1vw RAD 06/04/25 Taken 01:06 ,Urine Test LAB 06/04/25 Complete 01:08 Guaifenesin-Dm PHA 06/04/25 Complete 200/20mg 10ml 02:00 Current Medications Medications (Trade) Dose Ordered Sig/Hollis Route PRN Reason Start Time Stop Time Status Last Admin Dose Admin Guaifenesin/ Dextromethorphan (RobiTUSSin DM 200/20MG 10ML) 10 ml ONCE ONCE PO 06/04/25 02:00 06/04/25 02:01 DC 06/04/25 01:51 Vital Signs Date Time Temp Pulse Resp B/P (MAP) Pulse Ox O2 Delivery O2 Flow Rate FiO2 06/04/25 00:23 98.1 71 20 117/84 98 Room Air Medical Decision Making MDM The patient is a 29-year-old female with a history of asthma, , cholecystectomy who presents to the emergency department with complaints of sore throat, right ear pain, nonproductive cough onset a week ago. Patient denies any fevers. Serology was negative. X-ray showed no consolidation. On physical exam patient is in no acute distress, nontoxic appearance. We will be discharged to follow up with PCP. Differential diagnosis: URI, pneumonia, strep throat, otitis externa Need for hospitalization: Patient does not meet criteria for hospitalization. There are no social concerns with this patient. DX & DISP Disposition: Discharge Departure Impression: Primary Impression: Viral URI with cough Condition: Stable Scripts Benzonatate (Tessalon Perles) 100 Mg Cap 100 MG PO TID for cough, #30 CAP 0 Refills Prov: ANA JUAN [employer] 06/04/25 Additional Instructions: Your x-ray did not show any pneumonia. Please follow up with your primary doctor in 1-2 days. You can take Tylenol if you develop fevers. FOLLOW-UP WITH PRIMARY CARE PROVIDER IN 1 TO 2 DAYS. TAKE MEDICATIONS DIRECTED HERE IN THE EMERGENCY ROOM. OKAY TO CONTINUE HOME MEDICATIONS UNLESS OTHERWISE DISCUSSED DURING YOUR VISIT IN THE EMERGENCY ROOM TODAY. RETURN TO YOUR NEAREST EMERGENCY ROOM IF SYMPTOMS WORSEN OR IF THERE IS NO IMPROVEMENT. CALL 911 IF YOU NEED IMMEDIATE ASSISTANCE. TAKE TYLENOL TAOI-QCI-OCISHTH NEEDED AND IF NO CONTRAINDICATIONS ARE PRESENT. INCREASE ORAL HYDRATION. A WOUND CULTURE OR URINE CULTURE WAS ORDERED HERE IN THE EMERGENCY ROOM DEPARTMENT PLEASE FOLLOW-UP WITH PRIMARY CARE PROVIDER AND ADVISE THEM TO GET REPEAT PORTS FROM OUR FACILITY. IF YOU HAD ANY BRIONNA WRAP/SPLINTS THAT WERE APPLIED HERE, PLEASE DO NOT REMOVE THEM UNTIL YOU SEE YOUR PRIMARY CARE OR SPECIALTY. Referrals: SELENE EDWARDS PA-C (PCP) Time of Disposition: 02:29 I have reviewed the case, and I agree with, Diagnosis and Plan ANA JUAN [employer] Jun 04, 2025 01:47
[2025-06-04] MEDS: guaiFENesin-DM 200/20MG 10ML PO ONE (01:51)
[2025-06-04] MEDS ORDERED: BENZ-39 PO (02:30)
--- NOTE | 2025-06-04 03:05 | HMCIMG ---
EXAM: CR Chest, 1 view CLINICAL HISTORY: Cough. COMPARISON: 05/06/2025. FINDINGS: The lungs show no infiltrates or other acute findings. No pleural effusion or pneumothorax. The cardiomediastinal silhouette is within normal limits. No acute osseous abnormality. IMPRESSION: No acute cardiopulmonary process is evident. Compared to the prior study, there is no significant interval change. /[place]
== END 2025-06-04 02:40 | disposition home or self-care (01) ==
LOC: EDH 00:22
DX: J06.9 Acute upper respiratory infection, unspecified (principal); J45.909 Unspecified asthma, uncomplicated; F41.9 Anxiety disorder, unspecified; F32.A Depression, unspecified; Z90.49 Acquired absence of other specified parts of digestive tract; Z88.6 Allergy status to analgesic agent; Z98.890 Other specified postprocedural states; Z79.899 Other long term (current) drug therapy; Z20.822 Contact with and (suspected) exposure to COVID-19
CPT/HCPCS: 71045; 81025; 87635; 87804; 87880; 99283